=== PATIENT | male | born 1940 | race Caucasian/White ===

== ENCOUNTER 2016-07-04 16:47 | Emergency (ER) | payer OTHER, BC ==
[2016-07-04 17:13] VITALS: BP 153/73; PULSE 55; TEMP 97.6; BMI 23.3
--- NOTE | 2016-07-04 17:36 | PDOC ---
History of Present Illness - General Chief Complaint: Injury Stated Complaint: LT THUMB INJURY Time Seen by Provider: 07/04/16 17:31 History Source: Patient Exam Limitations: No Limitations - History of Present Illness Initial Comments: 07/04/16 17:33 fell last week onto outstretched left hand/ states was swollen/ bruised - patient taking Plavix and aspirin. States just felt was not improving therefore came for evaluation 07/04/16 17:37 Occurred: reports: last week Severity: reports: mild, moderate Pain Location: reports: upper extremity (hand pain ) Method of Injury: Yes: direct blow, fall Modifying Factors: improves with: None Past History - Travel Traveled outside of the country in the last 30 days: No Close contact w/someone who was outside of country & ill: No - Past Medical History Allergies/Adverse Reactions: Allergies Allergy/AdvReac Type Severity Reaction Status Date / Time No Known Allergies Allergy Verified 07/04/16 17:05 Home Medications: Ambulatory Orders Aspirin [ASA -] 81 mg PO DAILY #30 tab.chew 12/02/15 Atorvastatin Ca [Lipitor] 80 mg PO HS #30 tablet 12/02/15 Metoprolol Succinate [Toprol XL -] 25 mg PO DAILY 01/08/16 Lisinopril 10 mg PO BID 01/09/16 Anemia: Yes (IRON DEFICIENCY ANEMIA) Asthma: Yes Cancer: No Cardiac Disorders: Yes ([place] 12/03) CVA: No COPD: Yes (ASBESTOSIS) CHF: No Dementia: No Diabetes: No GI Disorders: Yes (GERD,GASTRODUODENITIS,GASTRITIS) Disorders: No HTN: Yes Hypercholesterolemia: Yes Kidney Stones: No Liver Disease: No Suicide Attempt (Hx): No Seizures: No Thyroid Disease: No Lung CA: No - Surgical History Abdominal Surgery: Yes (BILATERAL INGUINAL HERNIA REPAIR) Appendectomy: Yes Cardiac Surgery: Yes (STENT RIGHT/BALLOON LEFT SIDE) Cholecystectomy: No Lung Surgery: No Neurologic Surgery: No Orthopedic Surgery: No - Reproductive History Testicular Surgery: No - Immunization History Immunization Up to Date: Yes - Psycho/Social/Smoking Cessation Hx Anxiety: No Suicidal Ideation: No Smoking Status: No Smoking History: Never smoked Have you smoked in the past 12 months: No Number of Cigarettes Smoked Daily: 0 'Breaking Loose' booklet given: 10/11/14 Hx Alcohol Use: No (QUIT DRINKING FEB.2016) Drug/Substance Use Hx: No Substance Use Type: Alcohol Hx Substance Use Treatment: No Trauma Specific PMHX - Complaint Specific PMHX Arthritis: No Review of Systems - Review of Systems Able to Perform ROS?: Yes Is the patient limited Welsh proficient: Yes Constitutional: Yes: Symptoms Reported, See HPI, Malaise HEENTM: Yes: Symptoms Reported Respiratory: Yes: Symptoms reported, See HPI, Cough : No: Symptoms Reported Musculoskeletal: Yes: Symptoms Reported, See HPI, Joint Pain, Joint Swelling Integumentary: Yes: Symptoms Reported All Other Systems: Reviewed and Negative *Physical Exam - Vital Signs Last Vital Signs Temp Pulse Resp BP Pulse Ox 97.6 F 55 L 19 153/73 100 07/04/16 17:05 07/04/16 17:05 07/04/16 17:05 07/04/16 17:05 07/04/16 17:05 - Physical Exam General Appearance: Yes: Appropriately Dressed, Apparent Distress HEENT: positive: [place], Normal ENT Inspection, TMs Normal, Pharynx Normal Neck: negative: Tender Respiratory/Chest: positive: Lungs Clear Gastrointestinal/Abdominal: positive: Tender, Soft Extremity: positive: Normal Capillary Refill, Normal Range of Motion (pain with flexion and extension/ against resistance ) Integumentary: positive: Normal Color, Bruising (faint healing bruise to hand / ). negative: Swelling, Ecchymosis Neurologic: positive: commissioning specialist II-XII NML intact, Fully Oriented, Alert, Normal Mood/ Affect, Normal Response, Motor Strength 5/5 Progress Note - Progress Note Progress Note: hand contusion , neg for fractures or dislocation. Hand Leonard wrap, instructed to continue elevation and will see orthopedist for follow-up *DC/Admit/Observation/Transfer Diagnosis at time of Disposition: Contusion Qualifiers: Encounter type: initial encounter Contusion area: hand Laterality: left Qualified Code(s): S60.222A - Contusion of left hand, initial encounter - Discharge Dispostion Disposition: HOME Condition at time of disposition: Stable Admit: No - Referrals Referrals: Bakari Ellsworth MD [Primary Care Provider] - Petr Marks MD [Staff Physician] - - Patient Instructions Printed Discharge Instructions: Contusion Additional Instructions: Rest, ice to area on and off for 15 minutes 4-6 times a day Avoid heavy lifting or exercise until pain and swelling is resolved or until further directed Keep area highly elevated to reduce swelling Use splints/Leonard wrap as directed Followup with orthopedist in one to 2 days if not improving, if significantly improved may wait one week for followup with orthopedist May use Tylenol one or 2 tablets 500 mg every 6 hours as needed for pain
== END 2016-07-04 17:56 | disposition home or self-care (01) ==
LOC: JERFT 16:47 → JER 16:47 → JERFT 17:56
DX: S60.222A Contusion of left hand, initial encounter (principal); W18.39XA Other fall on same level, initial encounter; Y93.89 Activity, other specified; Y92.89 Other specified places as the place of occurrence of the external cause; I25.10 Atherosclerotic heart disease of native coronary artery without angina pectoris; I10 Essential (primary) hypertension; Z95.5 Presence of coronary angioplasty implant and graft; I25.2 Old myocardial infarction; D50.8 Other iron deficiency anemias; J45.909 Unspecified asthma, uncomplicated; E78.00 Pure hypercholesterolemia, unspecified; J61 Pneumoconiosis due to asbestos and other mineral fibers; Z79.01 Long term (current) use of anticoagulants
CPT/HCPCS: 73130-TC-LT; 99281-25

== ENCOUNTER 2016-09-30 08:46 | Emergency (ER) | payer OTHER, BC ==
[2016-09-30 08:54] VITALS: BP 152/90; PULSE 92; TEMP 98.2; BMI 24.0
--- NOTE | 2016-09-30 08:58 | PDOC ---
History of Present Illness - General Chief Complaint: Wound Infection Stated Complaint: WOUND INFECTION Time Seen by Provider: 09/30/16 08:56 History Source: Patient Exam Limitations: No Limitations - History of Present Illness Initial Comments: CHIEF COMPLAINT: 75 y/o afebrile male with PMH HTN, HLD, MA 2 years ago (no longer on blood thinner) c/o infection to right arm x "a few months". HISTORY OF PRESENT ILLNESS: The patient states he's had a wound on his right arm that is itchy for the past few months. Dr. April Hernandez has been treating him with benadryl cream. The patient states the past 2 days the patient states the area has become more itchy and when he scratches the scabs there is some yellow discharge. He denies fever, streaking and all other symptoms. Pt has been using benadryl cream. Vital signs on arrival are within normal limits. REVIEW OF SYSTEMS: GENERAL/CONSTITUTIONAL: No fever/chills. No weakness. No weight change. MUSCULOSKELETAL: +itchy rash/infection to right arm. No neck or back pain. SKIN: No rash or easy bruising. NEUROLOGIC: No headache, vertigo, loss of consciousness, or loss of sensation. PHYSICAL EXAM: VITAL_SIGNS: within normal limits GENERAL_APPEARANCE: alert, cooperative, no obvious discomfort. MENTAL_STATUS: speech clear, oriented X 3, responds appropriately to questions. NEURO: motor intact and sensory intact in injured extremity. EXTREMITIES: Small cluster of papules on lateral, proximal right forearm that have scabbed over with central scab open with dried purulent discharged. No surrounding erythema, edema, warmth or streaking. Full ROM of affected arm. SKIN: warm, dry, good color. Past History - Past Medical History Allergies/Adverse Reactions: Allergies Allergy/AdvReac Type Severity Reaction Status Date / Time No Known Allergies Allergy Verified 09/30/16 08:49 Home Medications: Ambulatory Orders Aspirin [ASA -] 81 mg PO DAILY #30 tab.chew 12/02/15 Atorvastatin Ca [Lipitor] 80 mg PO HS #30 tablet 12/02/15 Metoprolol Succinate [Toprol XL -] 25 mg PO DAILY 01/08/16 Lisinopril 10 mg PO BID 01/09/16 Clopidogrel Bisulfate [Clopidogrel] 75 mg PO DAILY 09/22/16 Nebivolol HCl [Bystolic] 5 mg PO DAILY 09/22/16 Pantoprazole Sodium 40 mg PO DAILY 09/22/16 Albuterol Sulfate [Proair Respiclick] 90 mcg IH DAILY 09/23/16 Budesonide/Formeterol Fumarate [SYMBICORT 160/4.5mcg -] 1 puff PO PRN 09/23/16 Hydroxyzine HCl [Atarax -] 25 mg PO TID 09/23/16 Ipratropium/Albuterol Sulfate [Iprat-Albut 0.5-3(2.5) mg/3 ml] 1 puff PO PRN 05/07 Thiamine HCl [Vitamin B1] 1 tab PO PRN 09/23/16 Tiotropium Alna [Spiriva] 1 inh PO DAILY 09/23/16 Mupirocin Ointment [Bactroban 2% Ointment -] 1 applic TP TID #1 tube 09/30/16 Anemia: Yes (IRON DEFICIENCY ANEMIA) Asthma: Yes Cancer: Yes (RECTAL CANCER) Cardiac Disorders: Yes ([place] 12/03) CVA: No COPD: Yes (ASBESTOSIS) CHF: No Dementia: No Diabetes: No GI Disorders: Yes (GERD,GASTRODUODENITIS,GASTRITIS) Disorders: No HTN: Yes Hypercholesterolemia: Yes Kidney Stones: No Liver Disease: No Suicide Attempt (Hx): No Seizures: No Thyroid Disease: No Lung CA: No - Surgical History Abdominal Surgery: Yes (BILATERAL INGUINAL HERNIA REPAIR) Appendectomy: Yes Cardiac Surgery: Yes (STENT RIGHT/BALLOON LEFT SIDE) Cholecystectomy: No Lung Surgery: No Neurologic Surgery: No Orthopedic Surgery: No - Reproductive History Testicular Surgery: No - Immunization History Immunization Up to Date: Yes - Psycho/Social/Smoking Cessation Hx Anxiety: No Suicidal Ideation: No Smoking Status: No Smoking History: Former smoker Have you smoked in the past 12 months: No Number of Cigarettes Smoked Daily: 0 Information on smoking cessation initiated: No 'Breaking Loose' booklet given: 10/11/14 Hx Alcohol Use: Yes Drug/Substance Use Hx: No Substance Use Type: Alcohol Hx Substance Use Treatment: No *Physical Exam - Vital Signs Last Vital Signs Temp Pulse Resp BP Pulse Ox 98.2 F 92 H 18 152/90 97 09/30/16 08:49 09/30/16 08:49 09/30/16 08:49 09/30/16 08:49 09/30/16 08:49 Medical Decision Making - Medical Decision Making A/P: 75 y/o male with small patch of infected papules on right forearm. Most likely infected from scratching. Will send bactroban ointment. Suggested he use for 1 week and if no improvement f/u with Dr. Hernandez and Dr. Ellsworth. Instructed him to return to the ER immediately with any worsening or concerning symptoms, such as fever. The patient verbalizes understanding of all instructions, has no further questions and is awaiting discharge. *DC/Admit/Observation/Transfer Diagnosis at time of Disposition: Arm wound Qualifiers: Encounter type: initial encounter Laterality: right Qualified Code(s): S41.101A - Unspecified open wound of right upper arm, initial encounter - Discharge Dispostion Disposition: HOME Condition at time of disposition: Good - Prescriptions Prescriptions: Mupirocin Ointment [Bactroban 2% Ointment -] 1 applic TP TID #1 tube - Referrals Referrals: Bakari Ellsworth MD [Primary Care Provider] - - Patient Instructions Printed Discharge Instructions: DI for Wound Infection Additional Instructions: Discharge Instructions: -A prescription for an antibiotic cream has been sent to your pharmacy; please take as prescribed -Follow up with Dr. Hernandez and Dr. Ellsworth if no improvement in 1 week -Return to the ER in 1 week with any worsening or concerning symptoms, including fever
== END 2016-09-30 09:24 | disposition home or self-care (01) ==
LOC: JERFT 08:46
DX: S41.101A Unspecified open wound of right upper arm, initial encounter (principal); Z85.048 Personal history of other malignant neoplasm of rectum, rectosigmoid junction, and anus; J61 Pneumoconiosis due to asbestos and other mineral fibers; K21.9 Gastro-esophageal reflux disease without esophagitis; I10 Essential (primary) hypertension; E78.00 Pure hypercholesterolemia, unspecified; Z87.891 Personal history of nicotine dependence
CPT/HCPCS: 87070; 87186; 87205; 99281-25

== ENCOUNTER 2017-03-04 07:03 | Emergency (ER) | payer OTHER, BC ==
[2017-03-04 07:14] VITALS: BP 154/100; PULSE 94; TEMP 98.3; BMI 24.9
--- NOTE | 2017-03-04 09:34 | PDOC ---
Suture Removal/Wound Check HPI - History of Present Illness Chief Complaint: Revisit,Wound Recheck Stated Complaint: POST SURGERY Time Seen by Provider: 03/04/17 08:56 History Source: Yes: Patient Exam Limitations: Yes: No Limitations Treated at: Other ED - Previous ED Treatment Type of procedure performed on last visit: Yes: Other Past History - Past Medical History Allergies/Adverse Reactions: Allergies Allergy/AdvReac Type Severity Reaction Status Date / Time No Known Allergies Allergy Verified 03/04/17 07:10 Home Medications: Ambulatory Orders Aspirin [ASA -] 81 mg PO DAILY #30 tab.chew 12/02/15 Atorvastatin Ca [Lipitor] 80 mg PO HS #30 tablet 12/02/15 Metoprolol Succinate [Toprol XL -] 25 mg PO DAILY 01/08/16 Lisinopril 10 mg PO BID 01/09/16 Clopidogrel Bisulfate [Clopidogrel] 75 mg PO DAILY 09/22/16 Pantoprazole Sodium 40 mg PO DAILY 09/22/16 Albuterol Sulfate [Proair Respiclick] 90 mcg IH DAILY 09/23/16 Ascorbic Acid [Vitamin C -] 500 mg PO ASDIR 03/04/17 Iron Ps Complex/B12/Folic Acid [Poly-Iron 150 Forte Capsule] 1 each PO ASDIR 02/07 Anemia: Yes (IRON DEFICIENCY ANEMIA) Asthma: Yes Cancer: Yes (RECTAL CANCER) Cardiac Disorders: Yes ([place] 12/03) CVA: No COPD: Yes (ASBESTOSIS) CHF: No Dementia: No Diabetes: No GI Disorders: Yes (GERD,GASTRODUODENITIS,GASTRITIS) Disorders: No HTN: Yes Hypercholesterolemia: Yes Kidney Stones: No Liver Disease: No Seizures: No Thyroid Disease: No Lung CA: No - Surgical History Abdominal Surgery: Yes (BILATERAL INGUINAL HERNIA REPAIR) Appendectomy: Yes Cardiac Surgery: Yes (STENT RIGHT/BALLOON LEFT SIDE) Cholecystectomy: No Lung Surgery: No Neurologic Surgery: No Orthopedic Surgery: No - Reproductive History Testicular Surgery: No - Immunization History Immunization Up to Date: Yes - Suicide/Smoking/Psychosocial Hx Smoking Status: No Smoking History: Former smoker Have you smoked in the past 12 months: No Number of Cigarettes Smoked Daily: 0 Information on smoking cessation initiated: No 'Breaking Loose' booklet given: 10/11/14 Hx Alcohol Use: Yes Drug/Substance Use Hx: No Substance Use Type: Alcohol Hx Substance Use Treatment: No *DC/Admit/Observation/Transfer Diagnosis at time of Disposition: Visit for wound check - Discharge Dispostion Disposition: HOME Condition at time of disposition: Stable Admit: No - Referrals Referrals: Bakari Ellsworth MD [Primary Care Provider] - - Patient Instructions Printed Discharge Instructions: How to Care for a Surgical Wound Additional Instructions: change dressigs daily as directed- add more bacitrain and guaze until followed up by Plastic Surgeon for wound check and suture removal. May use Tylenol for pain Return to Surgeon for fevers, problems - Post Discharge Activity
--- NOTE | 2017-03-04 09:38 | PDOC ---
Suture Removal/Wound Check HPI - History of Present Illness Chief Complaint: Revisit,Wound Recheck Stated Complaint: POST SURGERY Time Seen by Provider: 03/04/17 08:56 History Source: Yes: Patient Exam Limitations: Yes: No Limitations Treated at: Other ED - Previous ED Treatment Type of procedure performed on last visit: Yes: Other (Skin biopsy and excision to left nose and left ear graft site by plastic surgeon Dr. Ashby area patient came for dressing change as was concerned about persistent bleeding. Patient states blood profusely yesterday during procedure although he had stopped his Plavix approximately one week before the biopsy. Was concerned that he would not be able to stop the bleeding so came to ER for dressing change. Denies fever , pain, any bleeding throughout the night.) Tetanus Immunization: Yes: Up to Date Past History - Travel Traveled outside of the country in the last 30 days: No Close contact w/someone who was outside of country & ill: No - Past Medical History Allergies/Adverse Reactions: Allergies Allergy/AdvReac Type Severity Reaction Status Date / Time No Known Allergies Allergy Verified 03/04/17 07:10 Home Medications: Ambulatory Orders Aspirin [ASA -] 81 mg PO DAILY #30 tab.chew 12/02/15 Atorvastatin Ca [Lipitor] 80 mg PO HS #30 tablet 12/02/15 Metoprolol Succinate [Toprol XL -] 25 mg PO DAILY 01/08/16 Lisinopril 10 mg PO BID 01/09/16 Clopidogrel Bisulfate [Clopidogrel] 75 mg PO DAILY 09/22/16 Pantoprazole Sodium 40 mg PO DAILY 09/22/16 Albuterol Sulfate [Proair Respiclick] 90 mcg IH DAILY 09/23/16 Ascorbic Acid [Vitamin C -] 500 mg PO ASDIR 03/04/17 Iron Ps Complex/B12/Folic Acid [Poly-Iron 150 Forte Capsule] 1 each PO ASDIR 02/07 Anemia: Yes (IRON DEFICIENCY ANEMIA) Asthma: Yes Cancer: Yes (RECTAL CANCER) Cardiac Disorders: Yes ([place] 12/03) CVA: No COPD: Yes (ASBESTOSIS) CHF: No Dementia: No Diabetes: No GI Disorders: Yes (GERD,GASTRODUODENITIS,GASTRITIS) Disorders: No HTN: Yes Hypercholesterolemia: Yes Kidney Stones: No Liver Disease: No Seizures: No Thyroid Disease: No Lung CA: No - Surgical History Abdominal Surgery: Yes (BILATERAL INGUINAL HERNIA REPAIR) Appendectomy: Yes Cardiac Surgery: Yes (STENT RIGHT/BALLOON LEFT SIDE) Cholecystectomy: No Lung Surgery: No Neurologic Surgery: No Orthopedic Surgery: No - Reproductive History Testicular Surgery: No - Immunization History Immunization Up to Date: Yes - Suicide/Smoking/Psychosocial Hx Smoking Status: No Smoking History: Former smoker Have you smoked in the past 12 months: No Number of Cigarettes Smoked Daily: 0 Information on smoking cessation initiated: No 'Breaking Loose' booklet given: 10/11/14 Hx Alcohol Use: Yes Drug/Substance Use Hx: No Substance Use Type: Alcohol Hx Substance Use Treatment: No Suture Removal/Wound Check PE - Physical Exam Laceration/Wound Check Symptoms: reports: Pain (Some mild tenderness at suture line, denies redness, swelling, fevers, or excessive bleeding or drainage) Current Severity Level: Mild Maximum Severity Level: None Pain Localization: None *Review of Systems - Review of Systems Able to Perform ROS?: Yes Constitutional: Yes: Symptoms Reported, See HPI, Malaise Respiratory: No: Symptoms reported Musculoskeletal: No: Symptoms Reported Integumentary: Yes: Symptoms Reported Neurological: No: Symptoms reported All Other Systems: Reviewed and Negative Medical Decision Making - Medical Decision Making 03/04/17 09:45 Dressings removed, packing removed from area, wounds appear to be well approximated without erythema however has some faint swelling. No bleeding, no purulent drainage. Cleaned and redressed bacitracin and with Telfa dressing and patient discharged with follow-up *DC/Admit/Observation/Transfer Diagnosis at time of Disposition: Visit for wound check - Discharge Dispostion Disposition: HOME Condition at time of disposition: Stable Admit: No - Referrals Referrals: Bakari Ellsworth MD [Primary Care Provider] - - Patient Instructions Printed Discharge Instructions: How to Care for a Surgical Wound Additional Instructions: change dressigs daily as directed- add more bacitrain and guaze until followed up by Plastic Surgeon for wound check and suture removal. May use Tylenol for pain Return to Surgeon for fevers, problems - Post Discharge Activity
== END 2017-03-04 10:29 | disposition home or self-care (01) ==
LOC: JER 07:03
DX: Z48.01 Encounter for change or removal of surgical wound dressing (principal); Z98.890 Other specified postprocedural states
CPT/HCPCS: 99281-25

== ENCOUNTER 2017-03-05 07:46 | Emergency (ER) | payer OTHER, BC ==
[2017-03-05 07:56] VITALS: BP 144/105; PULSE 104; BMI 24.9
--- NOTE | 2017-03-05 08:42 | PDOC ---
History of Present Illness - General Chief Complaint: Revisit,Wound Recheck Stated Complaint: RE VISIT Time Seen by Provider: 03/05/17 08:15 History Source: Patient Exam Limitations: No Limitations - History of Present Illness Initial Comments: 03/05/17 09:19 Patient is a 76-year-old male, status post excision of skin cancer to left side of nose with reconstruction flap from cheek. Patient here because of bleeding to left nares. Was seen here yesterday dressing was changed. Patient still with oozing of blood to the left nares. Here for dressing change. Past History - Past Medical History Allergies/Adverse Reactions: Allergies Allergy/AdvReac Type Severity Reaction Status Date / Time No Known Allergies Allergy Verified 03/05/17 07:50 Home Medications: Ambulatory Orders Aspirin [ASA -] 81 mg PO DAILY #30 tab.chew 12/02/15 Atorvastatin Ca [Lipitor] 80 mg PO HS #30 tablet 12/02/15 Metoprolol Succinate [Toprol XL -] 25 mg PO DAILY 01/08/16 Lisinopril 10 mg PO BID 01/09/16 Clopidogrel Bisulfate [Clopidogrel] 75 mg PO DAILY 09/22/16 Pantoprazole Sodium 40 mg PO DAILY 09/22/16 Albuterol Sulfate [Proair Respiclick] 90 mcg IH DAILY 09/23/16 Ascorbic Acid [Vitamin C -] 500 mg PO ASDIR 03/04/17 Iron Ps Complex/B12/Folic Acid [Poly-Iron 150 Forte Capsule] 1 each PO ASDIR 02/07 Anemia: Yes (IRON DEFICIENCY ANEMIA) Asthma: Yes Cancer: Yes (RECTAL CANCER, FACIAL CA) Cardiac Disorders: Yes ([place] 12/03) CVA: No COPD: 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) CHF: No Dementia: No Diabetes: No GI Disorders: Yes (GERD,GASTRODUODENITIS,GASTRITIS) Disorders: No HTN: Yes Hypercholesterolemia: Yes Kidney Stones: No Liver Disease: No Seizures: No Thyroid Disease: No Lung CA: No - Surgical History Abdominal Surgery: Yes (BILATERAL INGUINAL HERNIA REPAIR) Appendectomy: Yes Cardiac Surgery: Yes (STENT RIGHT/BALLOON LEFT SIDE) Cholecystectomy: No Lung Surgery: No Neurologic Surgery: No Orthopedic Surgery: No - Reproductive History Testicular Surgery: No - Immunization History Immunization Up to Date: Yes - Suicide/Smoking/Psychosocial Hx Smoking Status: No Smoking History: Never smoked Have you smoked in the past 12 months: No Number of Cigarettes Smoked Daily: 0 'Breaking Loose' booklet given: 10/11/14 Hx Alcohol Use: No Drug/Substance Use Hx: No Substance Use Type: Alcohol Hx Substance Use Treatment: No Review of Systems - Review of Systems Constitutional: No: Symptoms Reported Integumentary: Yes: Other (no edema, induration or pustulent discharge. ). No: Symptoms Reported, Bruising, Erythema Hematologic/Lymphatic: No: Symptoms Reported All Other Systems: Reviewed and Negative *Physical Exam - Vital Signs Last Vital Signs Temp Pulse Resp BP Pulse Ox 104 H 20 144/105 97 03/05/17 07:47 03/05/17 07:47 03/05/17 07:47 03/05/17 07:47 - Physical Exam General Appearance: Yes: Appropriately Dressed. No: Apparent Distress Neck: negative: Tender lateral, Tender midline Respiratory/Chest: positive: Lungs Clear, Normal Breath Sounds Integumentary: positive: Swelling, Other. negative: Erythema, Ecchymosis, Bruising Neurologic: positive: Alert, Normal Mood/Affect Medical Decision Making - Medical Decision Making 03/05/17 08:38 A/P: Patient concerned of increased bleeding to surgical wound on left side of nose. I called patient's plastic surgeon I have explained to physician that patient was seen yesterday and dressing was changed, has stated that area is known to bleed 3 days postop. Dressing is to remain intact, the dressing will usually get saturated with blood and harden acting as a pressure dressing. He is to leave dressing intact and follow-up with doctor on Tuesday. If any excessive bleeding, call Avis 03/05/17 09:22 *DC/Admit/Observation/Transfer Diagnosis at time of Disposition: Visit for wound check - Discharge Dispostion Disposition: HOME Condition at time of disposition: Good Admit: No - Referrals Referrals: Bakari Ellsworth MD [Primary Care Provider] - - Patient Instructions Printed Discharge Instructions: How to Care for a Surgical Wound Additional Instructions: Please leave dressing intact. If blood is on dressing, leave it alone, do not remove. Your surgeon has stated that area can bleed for 3 days postop dressing will get hard and act as a pressure dressing. Follow-up with surgeon this week, call Tuesday for appointment - Post Discharge Activity
== END 2017-03-05 08:42 | disposition home or self-care (01) ==
LOC: JER 07:46 → JERFT 07:46
DX: Z70.9 Sex counseling, unspecified (principal)
CPT/HCPCS: 99281-25

== ENCOUNTER 2017-04-27 06:01 | Emergency (ER) | payer OTHER, BC ==
[2017-04-27 06:25] VITALS: BMI 23.6
--- NOTE | 2017-04-27 07:26 | PDOC ---
History of Present Illness - General Chief Complaint: Cold Symptoms Stated Complaint: DIFFICULTY BREATHING Time Seen by Provider: 04/27/17 07:08 History Source: Patient Exam Limitations: No Limitations - History of Present Illness Initial Comments: 04/27/17 07:26 The patient is a 76 -year-old man with a significant pats medical history of hypertension, hypercholesterolemia, [place] (2014 s/p cardiac catheterization), asbestosis, GERD, anemia and former alcohol abuse who presents to the emergency department via walk-in for increasing shortness of breath, fatigue, and generalized muscle pain (tiffanie chest and back, reproducible on palpation) for the past [address] Villegas 2 days ago who tested him positive for Tamiflu and told him to come to the ER after 2 days if he didn't feel better, which is why he's here today. Denies headache, nausea, vomiting, abdominal pain diarrhea. 04/27/17 07:51 Past History - Past Medical History Allergies/Adverse Reactions: Allergies Allergy/AdvReac Type Severity Reaction Status Date / Time No Known Allergies Allergy Verified 04/27/17 06:21 Home Medications: Ambulatory Orders Aspirin [ASA -] 81 mg PO DAILY #30 tab.chew 12/02/15 Atorvastatin Ca [Lipitor] 80 mg PO HS #30 tablet 12/02/15 Metoprolol Succinate [Toprol XL -] 25 mg PO DAILY 01/08/16 Lisinopril 10 mg PO BID 01/09/16 Clopidogrel Bisulfate [Clopidogrel] 75 mg PO DAILY 09/22/16 Pantoprazole Sodium 40 mg PO DAILY 09/22/16 Albuterol Sulfate [Proair Respiclick] 90 mcg IH DAILY 09/23/16 Ascorbic Acid [Vitamin C -] 500 mg PO ASDIR 03/04/17 Iron Ps Complex/B12/Folic Acid [Poly-Iron 150 Forte Capsule] 1 each PO ASDIR 02/07 Methylprednisolone [Medrol Dose Trev] 4 mg PO ASDIR #21 tablet 04/27/17 Anemia: Yes (IRON DEFICIENCY ANEMIA) Asthma: Yes Cancer: Yes (RECTAL CANCER, FACIAL CA) Cardiac Disorders: Yes ([place] 12/03 09/04) CVA: No COPD: 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) CHF: No Dementia: No Diabetes: No GI Disorders: Yes (GERD,GASTRODUODENITIS,GASTRITIS) Disorders: No HTN: Yes Hypercholesterolemia: Yes Kidney Stones: No Liver Disease: No Seizures: No Thyroid Disease: No Lung CA: No - Surgical History Abdominal Surgery: Yes (BILATERAL INGUINAL HERNIA REPAIR) Appendectomy: Yes Cardiac Surgery: Yes (STENT RIGHT/BALLOON LEFT SIDE) Cholecystectomy: No Lung Surgery: No Neurologic Surgery: No Orthopedic Surgery: No - Reproductive History Testicular Surgery: No - Immunization History Immunization Up to Date: Yes - Suicide/Smoking/Psychosocial Hx Smoking Status: No Smoking History: Never smoked Have you smoked in the past 12 months: No Number of Cigarettes Smoked Daily: 0 Information on smoking cessation initiated: No 'Breaking Loose' booklet given: 10/11/14 Hx Alcohol Use: No Drug/Substance Use Hx: No Substance Use Type: None, Alcohol Hx Substance Use Treatment: No Respiratory Specific PMHX - Complaint Specific PMHX Pulmonary Embolus: No TB (Tuberculosis): No Review of Systems - Review of Systems Able to Perform ROS?: Yes Is the patient limited Persian proficient: No Constitutional: Yes: See HPI HEENTM: No: Symptoms Reported Respiratory: Yes: See HPI Cardiac (ROS): No: Symptoms Reported ABD/GI: No: Symptoms Reported : No: Symptoms Reported Musculoskeletal: Yes: See HPI Integumentary: No: Symptoms Reported Neurological: No: Symptoms reported All Other Systems: Reviewed and Negative *Physical Exam - Vital Signs Last Vital Signs Temp Pulse Resp BP Pulse Ox 97.5 F L 62 18 121/72 96 04/27/17 06:21 04/27/17 06:21 04/27/17 06:21 04/27/17 06:21 04/27/17 06:21 ED Treatment Course - LABORATORY CBC & Chemistry Diagram: 04/27/17 08:10 04/27/17 08:10 Medical Decision Making - Medical Decision Making 04/27/17 09:37 All labs wnl, slight hyponnatremia, given patient [id number] of NS and 2 treatment of duoneb spoke to Dr. Mcgarry, Asked to d/c the patient on medrol dose pack and d/c the patient with follow up with Dr. Ellsworth tomorrow. 04/27/17 10:25 Impression: Large hiatal hernia. Pulmonary and parenchymal calcifications. No acute pathology. Ovoid density right mid lung woo periphery. Spoke to Dr. Mcgarry about avoid mass, will follow up with patient tomorrow. Will d/c on medrol dosepack *DC/Admit/Observation/Transfer Diagnosis at time of Disposition: Influenza due to seasonal influenza virus - Discharge Dispostion Disposition: HOME Condition at time of disposition: Improved Admit: No - Prescriptions Prescriptions: Methylprednisolone [Medrol Dose Trev] 4 mg PO ASDIR #21 tablet - Referrals Referrals: Bakari Ellsworth MD [Primary Care Provider] - - Patient Instructions Additional Instructions: Follow up with Dr. Ellsworth tomorrow. Come back to the ER for any new, worsening or concerning symptom. - Post Discharge Activity
[2017-04-27] MEDS ORDERED: ALBUTEROL SO4 2.5/IPRATROPIUM 0.5 INH SOL 3 ML VIAL.NEB. NEB ONE ×4 (07:33→09:21)
--- NOTE | 2017-04-27 07:35 | PDOC ---
Attending Attestation - HPI HPI: 04/27/17 07:43 The patient is a 76 year old male, with a significant past medical history hypertension, hyperlipidemia, GERD, asbestosis, [place](2014, s/p cardiac catheterization), rectal CA, facial CA, and anemia, who presents to the ED with fatigue, body aches, cough, generalized chest pain, shortness of breath for approximately 4 days. Patient reports visiting his PCP Dr. Joanne Ellsworth 2 days ago with similar symptoms and was started on Tamiflu. Patient reports his PCP recommended he come to the ED if his symptoms did not improve. He denies any fever, chills, headache, dizziness, diaphoresis, palpitations, nausea, vomiting , recent travel or sick contacts. - Medical Decision Making 04/27/17 07:43 Documentation prepared by Magda Desai, acting as medical office technologist for Doug Bowden MD. <Magda Desai - Last Filed: 04/27/17 09:10> - Resident Resident Name: Asif Pritchard - ED Attending Attestation I have performed the following: I have examined & evaluated the patient, The case was reviewed & discussed with the resident, I agree w/resident's findings & plan, Exceptions are as noted - Medical Decision Making 04/27/17 09:35 Patient is a 76-year-old male with history of CAD, hypertension who presents to the ER with generalized weakness, malaise, musculoskeletal chest, upper back and upper abdominal pain that is exacerbated by cough. Patient denies fever/ chills/nausea/vomiting. Patient's symptoms are consistent with ongoing flulike illness. Chest x-ray reveals no evidence of infiltrate or effusion, large hiatal hernias noted and questionable soft tissue avoid mass is noted in the right mid field which can be followed up as an outpatient. CBC/CMP within normal limit. Patient improved after administration of Combivent and 500 mL of normal saline. Will continue to reassess. Will discuss with PMD. <Doug Bowden - Last Filed: 04/27/17 16:27> Critical Care Time/MDM Note - Medical Decision Making Note: 04/27/17 09:11 First call placed to Dr. Ellsworth at 09:11. Awaiting call back. <Magda Desai - Last Filed: 04/27/17 09:10>
[2017-04-27] MEDS ORDERED: ACETAMINOPHEN 325 MG TABLET (FP) PO ONE (07:36)
[2017-04-27] MEDS ORDERED: ACETAMINOPHEN 325 MG TABLET (FP) ONE (07:38)
[2017-04-27] MEDS ORDERED: SODIUM CHLORIDE 500 ML IV STA ×2 (07:43→09:07)
[2017-04-27 08:29] LABS: BASO % 1.2 % (0-2.0); EOS % 12.4 % (0-4.5); HEMOGLOBIN 14.6 GM/dL (11.7-16.9); LYMPH % 18.5 % (8-40); MCH 35.4 pg (25.7-33.7); MCHC 34.8 g/dl (32.0-35.9); MEAN CELL VOLUME 101.5 fl (80-96); MEAN PLT VOLUME 9.6 fl (7.5-11.1); MONO % 10.5 % (3.8-10.2); NEUT % 57.4 % (42.8-82.8); PLATELET COUNT 208 K/MM3 (134-434); RBC 4.13 M/mm3 (4.00-5.60); RDW 14.9 % (11.9-15.9); WHITE BLOOD COUNT 7.4 K/mm3 (4.0-10.0)
[2017-04-27 08:40] LABS: ANION GAP 8 (8-16); BILIRUBIN,TOTAL 0.7 mg/dL (0.2-1.0); BLOOD UREA NITROGEN 11 mg/dL (7-18); CALCIUM 8.6 mg/dL (8.5-10.1); CHLORIDE 95 mmol/L (98-107); CO2 28 mmol/L (21-32); GLUCOSE,RANDOM 84 mg/dL (74-106); SGOT/AST 15 U/L (15-37); SGPT/ALT 14 U/L (12-78); SODIUM 131 mmol/L (136-145); TOT PROT 7.7 g/dl (6.4-8.2)
[2017-04-27 08:41] LABS: ALK PHOS 62 U/L (45-117)
[2017-04-27 10:46] VITALS: BP 147/76; PULSE 76; TEMP 97.6
--- NOTE | 2017-04-27 10:51 | EKG ---
Test Reason : Blood Pressure : / mmHG Vent. Rate : 056 BPM Atrial Rate : 056 BPM P-R Int : 142 ms QRS Dur : 084 ms QT Int : 450 ms P-R-T Axes : 044 041 057 degrees QTc Int : 434 ms SINUS BRADYCARDIA WITH OCCASIONAL PREMATURE VENTRICULAR COMPLEXES OTHERWISE NORMAL ECG WHEN COMPARED WITH ECG OF 29-DEC-2015 11:54, PREMATURE VENTRICULAR COMPLEXES ARE NOW PRESENT PREMATURE ATRIAL COMPLEXES ARE NO LONGER PRESENT Confirmed by LUCAS CASH, LILY ([id number]) on 04/27/2017 10:50:38 AM Referred By: Confirmed By:LILY ZAVALA MD
== END 2017-04-27 10:46 | disposition home or self-care (01) ==
LOC: JER 06:01
PROC: 3E0F7GC Introduction of Other Therapeutic Substance into Respiratory Tract, Via Natural or Artificial Opening (ICD-10-PCS; principal; 2017-04-27)
PROC: 3E0337Z Introduction of Electrolytic and Water Balance Substance into Peripheral Vein, Percutaneous Approach (ICD-10-PCS; 2017-04-27)
DX: J11.1 Influenza due to unidentified influenza virus with other respiratory manifestations (principal); I10 Essential (primary) hypertension; E78.00 Pure hypercholesterolemia, unspecified; I25.2 Old myocardial infarction; K21.9 Gastro-esophageal reflux disease without esophagitis
CPT/HCPCS: 36415; 71046-TC-FY; 80053; 85025; 93005; 93010; 99282-25

== ENCOUNTER 2017-07-15 14:29 | Emergency (ER) | payer OTHER, BC ==
[2017-07-15 14:47] VITALS: BP 122/80; PULSE 89; TEMP 98.6; BMI 24.0
--- NOTE | 2017-07-15 14:54 | PDOC ---
Rapid Medical Evaluation Chief Complaint: Wound Time Seen by Provider: 07/15/17 14:45 Medical Evaluation: Allergies Allergy/AdvReac Type Severity Reaction Status Date / Time No Known Allergies Allergy Verified 07/15/17 14:43 Vital Signs Temp Pulse Resp BP Pulse Ox 98.6 F 89 18 122/80 99 07/15/17 14:44 07/15/17 14:44 07/15/17 14:44 07/15/17 14:44 07/15/17 14:44 07/15/17 14:49 I have performed a brief in-person evaluation of this patient. The patient presents with a chief complaint of: possible infection to L forearm. Fell 3 days ago and sustained abrasion to L forearm, now with redness and pain to site, no f/c. H/o CAD, CA Pertinent physical exam findings:stable and well jv w/ 4x3 cm abrasion to L FA w/ limited erythema and ttp I have ordered the following:xray The patient will proceed to the ED for further evaluation 07/15/17 14:54 Discharge Disposition - Diagnosis Abrasion - Referrals - Patient Instructions - Post Discharge Activity
--- NOTE | 2017-07-15 15:34 | PDOC ---
History of Present Illness - General Chief Complaint: Wound Stated Complaint: INFECTION HAND Time Seen by Provider: 07/15/17 14:45 History Source: Patient Exam Limitations: No Limitations - History of Present Illness Initial Comments: CHIEF COMPLAINT: 76 y/o afebrile male with PMH HTN, HLD, CAD with [place] 2 years ago on Plavix c/o left arm wound x 3 days. HISTORY OF PRESENT ILLNESS: The patient sustained a left arm abrasion 3 days ago. He states it still hurts. He's been cleaning it with peroxide but is worried it's infected. He denies fever, streaking. Vital signs on arrival are within normal limits. REVIEW OF SYSTEMS: GENERAL/CONSTITUTIONAL: No fever/chills. No weakness. No weight change. MUSCULOSKELETAL: No joint or muscle swelling or pain. No neck or back pain. SKIN: +painful abrasion to left arm NEUROLOGIC: No headache, vertigo, loss of consciousness, or loss of sensation. PHYSICAL EXAM: VITAL_SIGNS: within normal limits GENERAL_APPEARANCE: alert, cooperative, mild obvious discomfort. MENTAL_STATUS: speech clear, oriented X 3, responds appropriately to questions. NEURO: motor intact and sensory intact in injured extremity. EXTREMITIES: 4cm x 3cm abrasion to left forearm with minimal bleeding and erythematous base. No obvious deformities, streaking or warmth. Full flexion, extension, pronation and supination of left forearm SKIN: warm, dry, good color. Past History - Past Medical History Allergies/Adverse Reactions: Allergies Allergy/AdvReac Type Severity Reaction Status Date / Time No Known Allergies Allergy Verified 07/15/17 14:43 Home Medications: Ambulatory Orders Aspirin [ASA -] 81 mg PO DAILY #30 tab.chew 12/02/15 Atorvastatin Ca [Lipitor] 80 mg PO HS #30 tablet 12/02/15 Metoprolol Succinate [Toprol XL -] 25 mg PO DAILY 01/08/16 Lisinopril 10 mg PO BID 01/09/16 Clopidogrel Bisulfate [Clopidogrel] 75 mg PO DAILY 09/22/16 Pantoprazole Sodium 40 mg PO DAILY 09/22/16 Albuterol Sulfate [Proair Respiclick] 90 mcg IH DAILY 09/23/16 Ascorbic Acid [Vitamin C -] 500 mg PO ASDIR 03/04/17 Iron Ps Complex/B12/Folic Acid [Poly-Iron 150 Forte Capsule] 1 each PO ASDIR 02/07 Mupirocin Ointment [Bactroban] 1 applic TP TID #1 tube 07/15/17 Anemia: Yes (IRON DEFICIENCY ANEMIA) Asthma: Yes Cancer: Yes (RECTAL CANCER, FACIAL CA) Cardiac Disorders: Yes ([place] 12/03 09/04) CVA: No COPD: 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) CHF: No Dementia: No Diabetes: No GI Disorders: Yes (GERD,GASTRODUODENITIS,GASTRITIS) Disorders: No HTN: Yes Hypercholesterolemia: Yes Kidney Stones: No Liver Disease: No Seizures: No Thyroid Disease: No Lung CA: No - Surgical History Abdominal Surgery: Yes (BILATERAL INGUINAL HERNIA REPAIR) Appendectomy: Yes Cardiac Surgery: Yes (STENT RIGHT/BALLOON LEFT SIDE) Cholecystectomy: No Lung Surgery: No Neurologic Surgery: No Orthopedic Surgery: No - Reproductive History Testicular Surgery: No - Immunization History Immunization Up to Date: Yes - Suicide/Smoking/Psychosocial Hx Smoking Status: No Smoking History: Former smoker Have you smoked in the past 12 months: No Number of Cigarettes Smoked Daily: 0 Information on smoking cessation initiated: No 'Breaking Loose' booklet given: 10/11/14 Hx Alcohol Use: No Drug/Substance Use Hx: No Substance Use Type: None, Alcohol Hx Substance Use Treatment: No *Physical Exam - Vital Signs Last Vital Signs Temp Pulse Resp BP Pulse Ox 98.6 F 89 18 122/80 99 07/15/17 14:44 07/15/17 14:44 07/15/17 14:44 07/15/17 14:44 07/15/17 14:44 Medical Decision Making - Medical Decision Making A/P: 76 y.o male with left forearm abrasion. Looks clean. Plan is as follows: 1. Left forearm/elbow xray Left forearm/elbow xray IMPRESSION: (wet read) No fracture The patient's abrasion was cleaned and covered. Sent rx for bactroban. Suggested he keep area covered, follow up with his doctor next week and return to the ER with any worsening or concerning symptoms The patient verbalizes understanding of all instructions, has no further questions and is awaiting discharge. *DC/Admit/Observation/Transfer Diagnosis at time of Disposition: Abrasion - Discharge Dispostion Disposition: HOME Condition at time of disposition: Good - Prescriptions Prescriptions: Mupirocin Ointment [Bactroban] 1 applic TP TID #1 tube - Referrals Referrals: Bakari Ellswroth MD [Primary Care Provider] - - Patient Instructions Printed Discharge Instructions: DI for Abrasion Additional Instructions: Discharge Instructions: -Your xray was normal -A prescription for antibiotic cream has been sent to your pharmacy; please use it 3 times per day -Keep the wound covered -Follow up with your doctor next week -Return to the ER with any worsening or concerning symptoms - Post Discharge Activity
== END 2017-07-15 16:04 | disposition home or self-care (01) ==
LOC: JERFT 14:29
DX: S50.812A Abrasion of left forearm, initial encounter (principal); W18.39XA Other fall on same level, initial encounter; Y93.89 Activity, other specified; Y92.89 Other specified places as the place of occurrence of the external cause; Y99.8 Other external cause status; I25.2 Old myocardial infarction; I25.10 Atherosclerotic heart disease of native coronary artery without angina pectoris; I10 Essential (primary) hypertension; Z95.5 Presence of coronary angioplasty implant and graft; E78.00 Pure hypercholesterolemia, unspecified; Z87.19 Personal history of other diseases of the digestive system; Z79.82 Long term (current) use of aspirin; Z79.01 Long term (current) use of anticoagulants; Z85.048 Personal history of other malignant neoplasm of rectum, rectosigmoid junction, and anus; Z85.828 Personal history of other malignant neoplasm of skin; Z87.891 Personal history of nicotine dependence
CPT/HCPCS: 73070-TC-LT-FY; 73090-TC-LT-FY; 99281-25

== ENCOUNTER 2017-09-08 14:07 | Emergency (ER) | payer OTHER, BC ==
[2017-09-08 14:26] VITALS: BMI 24.0
--- NOTE | 2017-09-08 15:11 | PDOC ---
History of Present Illness - General Chief Complaint: Shortness of Breath Stated Complaint: Shortness of Breath Time Seen by Provider: 09/08/17 14:58 - History of Present Illness Initial Comments: 09/08/17 15:10 76 yo M w a hx of asthma, hypertension, hyperlipidemia, GERD, asbestosis, [place]( 2013, s/p cardiac catheterization), rectal CA, facial CA, and anemia, is here because he became short of breath this morning while he was watching TV. He took a breathing treatment at home, he believes it was albuterol, and now he is able to breath much better. Denies chest pain, fevers, recent infections, recent travel, headache, dizziness , abdominal pain. 09/08/17 15:11 09/08/17 15:21 09/08/17 15:42 Past History - Past Medical History Allergies/Adverse Reactions: Allergies Allergy/AdvReac Type Severity Reaction Status Date / Time No Known Allergies Allergy Verified 09/08/17 14:23 Home Medications: Ambulatory Orders Aspirin [ASA -] 81 mg PO DAILY #30 tab.chew 12/02/15 Atorvastatin Ca [Lipitor] 80 mg PO HS #30 tablet 12/02/15 Metoprolol Succinate [Toprol XL -] 25 mg PO DAILY 01/08/16 Lisinopril 10 mg PO BID 01/09/16 Clopidogrel Bisulfate [Clopidogrel] 75 mg PO DAILY 09/22/16 Pantoprazole Sodium 40 mg PO DAILY 09/22/16 Albuterol Sulfate [Proair Respiclick] 90 mcg IH DAILY 09/23/16 Ascorbic Acid [Vitamin C -] 500 mg PO ASDIR 03/04/17 Iron Ps Complex/B12/Folic Acid [Poly-Iron 150 Forte Capsule] 1 each PO ASDIR 02/07 Mupirocin Ointment [Bactroban] 1 applic TP TID #1 tube 07/15/17 Mupirocin Ointment [Bactroban 2% Ointment -] 1 applic TP BID #1 tube 09/08/17 Anemia: Yes (IRON DEFICIENCY ANEMIA) Asthma: Yes Cancer: Yes (RECTAL CANCER, FACIAL CA) Cardiac Disorders: Yes ([place] 12/03 09/04) CVA: No COPD: 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) CHF: No Dementia: No Diabetes: No GI Disorders: Yes (GERD,GASTRODUODENITIS,GASTRITIS) Disorders: No HTN: Yes Hypercholesterolemia: Yes Kidney Stones: No Liver Disease: No Seizures: No Thyroid Disease: No Lung CA: No - Surgical History Abdominal Surgery: Yes (BILATERAL INGUINAL HERNIA REPAIR) Appendectomy: Yes Cardiac Surgery: Yes (STENT RIGHT/BALLOON LEFT SIDE) Cholecystectomy: No Lung Surgery: No Neurologic Surgery: No Orthopedic Surgery: No - Reproductive History Testicular Surgery: No - Immunization History Immunization Up to Date: Yes - Suicide/Smoking/Psychosocial Hx Smoking Status: No Smoking History: Never smoked Have you smoked in the past 12 months: Yes Number of Cigarettes Smoked Daily: 2 Information on smoking cessation initiated: No 'Breaking Loose' booklet given: 10/11/14 Hx Alcohol Use: No Drug/Substance Use Hx: No Substance Use Type: None, Alcohol Hx Substance Use Treatment: No Review of Systems - Review of Systems Comments:: 09/08/17 15:47 RESPIRATORY: Positive: shortness of breath Absent: cough, dyspnea with exertion, orthopnea, wheezing, stridor,hemoptysis CONSTITUTIONAL: Absent: fever, chills, diaphoresis, generalized weakness, malaise, loss of appetite HEENT: Absent: rhinorrhea, nasal congestion, throat pain, throat swelling, difficulty swallowing, mouth swelling, ear pain, eye pain, visual Changes CARDIOVASCULAR: Absent: chest pain, syncope, palpitations, irregular heart rate, lightheadedness , peripheral edema GASTROINTESTINAL: Absent: abdominal pain, abdominal distension, nausea, vomiting, diarrhea, constipation, melena, hematochezia GENITOURINARY: Absent: dysuria, frequency, urgency, hesitancy, hematuria, flank pain, genital pain MUSCULOSKELETAL: Absent: myalgia, arthralgia, joint swelling SKIN: Positive: Rash Absent: itching, pallor HEMATOLOGIC/IMMUNOLOGIC: Absent: easy bleeding, easy bruising, lymphadenopathy, frequent infections ENDOCRINE: Absent: unexplained weight gain, unexplained weight loss, heat intolerance, cold intolerance NEUROLOGIC: Absent: headache, focal weakness or paresthesias, dizziness, unsteady gait, seizure, mental status changes, bladder or bowel incontinence PSYCHIATRIC: Absent: anxiety, depression, suicidal or homicidal ideation, hallucinations. *Physical Exam - Vital Signs Last Vital Signs Temp Pulse Resp BP Pulse Ox 97.7 F 60 20 131/81 95 09/08/17 14:23 09/08/17 14:23 09/08/17 14:23 09/08/17 14:23 09/08/17 14:23 - Physical Exam Comments: 09/08/17 15:49 PULMONARY: mild evidence of respiratory distress. There is decreased airflow in the left lower lobe, otherwise he is clear to auscultation bilaterally. No wheezing, rales or rhonchi. GENERAL: The patient is jittery and says its because of his breathing treatment ( probably albuterol) Well developed, well nourished. Awake and alert. HEENT: Normocephalic, atraumatic. PERRLA, EOMI. No conjunctival pallor. Sclera are non- icteric. Moist mucous membranes. Oropharynx is clear. NECK: Supple. Full ROM. No JVD. Carotid pulses 2+ and symmetric, without bruits. No thyromegaly. No lymphadenopathy. CARDIOVASCULAR: Regular rate and rhythm. No murmurs, rubs, or gallops. Distal pulses are 2+ and symmetric. ABDOMINAL: Soft. Non-tender. Non-distended. No rebound or guarding. No organomegaly. Normoactive bowel sounds. MUSCULOSKELETAL Normal range of motion at all joints. No bony deformities or tenderness. No CVA tenderness. EXTREMITIES: No cyanosis. No clubbing. No edema. No calf tenderness. SKIN: Left arm: erythematous area on left forearm. Warm and dry. Normal capillary refill. No jaundice. NEUROLOGICAL: Alert, awake, appropriate. Cranial nerves 2-12 intact. No deficits to light touch and temperature in face, upper extremities and lower extremities. No motor deficits in the in face, upper extremities and lower extremities. Normoreflexic in the upper and lower extremities. Normal speech. Toes are down-going bilaterally. Gait is normal without ataxia. PSYCHIATRIC: Cooperative. Good eye contact. Appropriate mood and affect. Heart Score/ECG Review - Electrocardiogram EKG: Normal - Age Age: >/= 65 - ECG Intrepretation Rhythm: PVC(s) - ECG Impressions Normal ECG: Yes Non-specific ST Elevation: No Ischemic Changes: No Bradycardia: No Medical Decision Making - Medical Decision Making 09/08/17 16:00 76 yo M hx of asthma here after an episode of SOB this afternoon while watching TV. He took a breathing treatment and felt better. Vitals stable. Plan: CXR, 2nd breathing treatment, re-assess. Dispo: Patient felt better after duoneb. Vitals stable, no SOB or difficulty breathing. Sending him home. 09/08/17 16:00 09/08/17 18:11 *DC/Admit/Observation/Transfer Diagnosis at time of Disposition: Asthma attack - Discharge Dispostion Disposition: HOME Condition at time of disposition: Improved Decision to Admit order: No - Prescriptions Prescriptions: Mupirocin Ointment [Bactroban 2% Ointment -] 1 applic TP BID #1 tube - Referrals Referrals: Bakari Ellsworth MD [Primary Care Provider] - - Patient Instructions Printed Discharge Instructions: Asthma -- Adult Additional Instructions: Please make sure to schedule an appointment with your PCP in the next 7-10 days. Come back to the ER if your symptoms worsen, you develop a fever or with any other serious concerns. We are prescribing an antibiotic to your pharmacy for the rash on your arm. - Post Discharge Activity
[2017-09-08] MEDS ORDERED: ALBUTEROL SO4 2.5/IPRATROPIUM 0.5 INH SOL 3 ML VIAL.NEB. NEB ONE ×2 (15:13→15:54)
--- NOTE | 2017-09-08 17:29 | PDOC ---
Attending Attestation - Medical Decision Making 09/08/17 17:31 Chest X-ray was reviewed by Dr. Sun and over-read by Radiology. Impression: Imaging reveals a large heart, large hiatal hernia, pleural calcifications, prominent knob and coarse central findings. An acute chest process is not seen. There are degenerative changes with wedging. Since 04/27/2017, there is no change of an adverse nature. Documentation prepared by Maty Lovell, acting as medical biller coder for Juwan Sun MD. <Maty Lovell - Last Filed: 09/08/17 17:31> - Resident Resident Name: Shawn Smith - ED Attending Attestation I have performed the following: I have examined & evaluated the patient, The case was reviewed & discussed with the resident, I agree w/resident's findings & plan, Exceptions are as noted - HPI HPI: 09/08/17 17:24 The patient is a 76 year old male with a significant past medical history of asbestosis, anemia, asthma, GERD, gastroduodenitis, gastritis, hypertension, hyperlipidemia, [place] (2013, s/p cardiac catheterization), rectal CA who presents to the emergency department complaining of a few hours of shortness of breath. This morning while watching TV he became short of breath and took albuterol with relief but came to ER for evaluation. Pt reports SOB feels like his asthma. 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 The patient denies chest pain, headache, and dizziness. Denies fevers, chills, nausea, vomiting, diarrhea, and constipation. Denies cough Denies dysuria, frequency, urgency, and hematuria. Allergies: NKA Past surgical history: cardiac catheterization (2013), bilateral inguinal hernia repair, cardiac stent right side, cardiac balloon left side, appendectomy Social history: No reported cigarette, alcohol, or drug use. PCP: Dr. Joanne Ellsworth - Physicial Exam PE: 09/08/17 17:23 GENERAL: Awake, alert, and fully oriented, in no acute distress. Ambulating in ED requesting to go home. EYES: PERRLA, EOMI, sclera anicteric, conjunctiva clear ENT: Auricles normal inspection, hearing grossly normal, nares patent, oropharynx clear without exudates. Moist mucosa NECK: Normal ROM, supple, no lymphadenopathy, JVD, or masses LUNGS: Breath sounds equal, clear to auscultation bilaterally. No wheezes, and no crackles HEART: Regular rate and rhythm, normal S1 and S2, no murmurs, rubs or gallops ABDOMEN: Soft, nontender, normoactive bowel sounds. No guarding, no rebound. No masses EXTREMITIES: Normal range of motion, no edema. No clubbing or cyanosis. No cords, erythema, or tenderness NEUROLOGICAL: Normal speech, cranial nerves intact, negative pronator drift, 5/ 5 strength in all 4 extremities, normal sensation to light touch in all 4 extremities, normal cerebellar exam, normal gait, normal reflexes and tone SKIN: L forearm with excoriated erythematous papules coalescing into plaques with honey colored crusting on a few lesions. No induration. Otherwise, warm, Dry, normal turgor, no rashes or lesions noted. - Medical Decision Making 09/08/17 17:29 76yo M with MMP including asthma presents to the ED with SOB that resolved after home breathing treatment, CXR unchanged. Asymptomatic during ED stay. Arm with rash consistent with impetigo. Will check EKG to r/o changes and likely DC. <Juwan Sun - Last Filed: 09/08/17 18:11> Heart Score/ECG Review #1 09/08/17 18:09 Twelve-lead EKG was performed and reviewed by me. Sinus rhythm, rate 65. + occasional PVC. Normal axis, no ELISEO. No significant changes compared to EKG from 04/27/17 <Juwan Sun - Last Filed: 09/08/17 18:11>
[2017-09-08 18:05] VITALS: BP 128/75; PULSE 75; TEMP 97.6
[2017-09-08] MEDS ORDERED: MUPIROCIN 2% TOPICAL OINTMENT 22 GM TUBE TP SCH (22:00)
--- NOTE | 2017-09-09 12:10 | EKG ---
Test Reason : Blood Pressure : / mmHG Vent. Rate : 065 BPM Atrial Rate : 065 BPM P-R Int : 114 ms QRS Dur : 084 ms QT Int : 432 ms P-R-T Axes : 000 006 018 degrees QTc Int : 449 ms SINUS RHYTHM WITH OCCASIONAL PREMATURE VENTRICULAR COMPLEXES OTHERWISE NORMAL ECG WHEN COMPARED WITH ECG OF 27-APR-2017 07:43, NO SIGNIFICANT CHANGE WAS FOUND Confirmed by LILY ZAVALA MD ([id number]) on 09/09/2017 12:10:46 PM Referred By: Confirmed By:LILY ZAVALA MD
== END 2017-09-08 18:10 | disposition home or self-care (01) ==
LOC: JER 14:07
PROC: 3E0F7GC Introduction of Other Therapeutic Substance into Respiratory Tract, Via Natural or Artificial Opening (ICD-10-PCS; principal; 2017-09-08)
DX: J45.901 Unspecified asthma with (acute) exacerbation (principal); I25.10 Atherosclerotic heart disease of native coronary artery without angina pectoris; I10 Essential (primary) hypertension; Z95.5 Presence of coronary angioplasty implant and graft; K21.9 Gastro-esophageal reflux disease without esophagitis; J61 Pneumoconiosis due to asbestos and other mineral fibers; D50.8 Other iron deficiency anemias; Z85.048 Personal history of other malignant neoplasm of rectum, rectosigmoid junction, and anus; Z85.828 Personal history of other malignant neoplasm of skin; Z87.19 Personal history of other diseases of the digestive system
CPT/HCPCS: 71046-TC-FY; 93005; 93010; 99282-25; J7620

== ENCOUNTER 2018-08-11 11:11 | Emergency (ER) | payer OTHER, BC ==
[2018-08-11 11:35] VITALS: BMI 24.0
[2018-08-11] MEDS ORDERED: ALBUTEROL SO4 2.5/IPRATROPIUM 0.5 INH SOL 3 ML VIAL.NEB. NEB ONE ×2 (12:00→12:29)
[2018-08-11] MEDS ORDERED: DEXAMETHASONE SOD PHOSPHATE 10 MG/1 ML VIAL IM ONE (12:00)
[2018-08-11] MEDS ORDERED: DEXAMETHASONE SOD PHOSPHATE 10 MG/1 ML VIAL ONE (12:29)
[2018-08-11 13:02] LABS: BASO % 0.6 % (0-2.0); EOS % 3.4 % (0-4.5); HEMATOCRIT 40.7 % (35.4-49); HEMOGLOBIN 13.8 GM/dL (11.7-16.9); LYMPH % 15.5 % (8-40); MCH 35.8 pg (25.7-33.7); MEAN CELL VOLUME 105.3 fl (80-96); MEAN PLT VOLUME 7.3 fl (7.5-11.1); MONO % 10.5 % (3.8-10.2); PLATELET COUNT 237 K/MM3 (134-434); RBC 3.87 M/mm3 (4.00-5.60); RDW 14.5 % (11.9-15.9); WHITE BLOOD COUNT 6.5 K/mm3 (4.0-10.0)
[2018-08-11 13:33] LABS: BILIRUBIN,TOTAL 0.9 mg/dL (0.2-1); BLOOD UREA NITROGEN 8.8 mg/dL (7-18); CALCIUM 9.1 mg/dL (8.5-10.1); CREATININE 0.9 mg/dL (0.55-1.3); POTASSIUM 4.3 mmol/L (3.5-5.1); TOT PROT 7.6 g/dl (6.4-8.2)
[2018-08-11 13:52] LABS: ANISOCYTOSIS 1+; MACROCYTOSIS 2+; PLATELET ESTIMATE NORMAL
--- NOTE | 2018-08-11 14:08 | PDOC ---
History of Present Illness - General History Source: Patient Exam Limitations: No Limitations <Oneyda Hubbard - Last Filed: 08/11/18 21:15> <Sabine Osei - Last Filed: 08/12/18 08:35> - General Chief Complaint: Respiratory Stated Complaint: Shortness of Breath Time Seen by Provider: 08/11/18 11:38 Past History - Travel Traveled outside of the country in the last 30 days: No Close contact w/someone who was outside of country & ill: No - Past Medical History Anemia: Yes (IRON DEFICIENCY ANEMIA) Asthma: Yes Cancer: Yes (RECTAL CANCER, FACIAL CA) Cardiac Disorders: Yes ([place] 12/03 09/04) CVA: No COPD: 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) CHF: No Dementia: No Diabetes: No GI Disorders: Yes (GERD,GASTRODUODENITIS,GASTRITIS) Disorders: No HTN: Yes Hypercholesterolemia: Yes Kidney Stones: No Liver Disease: No Seizures: No Thyroid Disease: No Lung CA: No - Surgical History Abdominal Surgery: Yes (BILATERAL INGUINAL HERNIA REPAIR) Appendectomy: Yes Cardiac Surgery: Yes (STENT RIGHT/BALLOON LEFT SIDE) Cholecystectomy: No Lung Surgery: No Neurologic Surgery: No Orthopedic Surgery: No - Reproductive History Testicular Surgery: No - Immunization History Immunization Up to Date: Yes - Suicide/Smoking/Psychosocial Hx Smoking Status: No Smoking History: Never smoked Have you smoked in the past 12 months: Yes Number of Cigarettes Smoked Daily: 2 'Breaking Loose' booklet given: 10/11/14 Hx Alcohol Use: Yes Drug/Substance Use Hx: No Substance Use Type: None, Alcohol Hx Substance Use Treatment: No <Oneyda Hubbard - Last Filed: 08/11/18 21:15> <Sabine Osei - Last Filed: 08/12/18 08:35> - Past Medical History Allergies/Adverse Reactions: Allergies Allergy/AdvReac Type Severity Reaction Status Date / Time No Known Allergies Allergy Verified 08/11/18 11:30 Home Medications: Ambulatory Orders Aspirin [ASA -] 81 mg PO DAILY #30 tab.chew 12/02/15 Atorvastatin Ca [Lipitor] 80 mg PO HS #30 tablet 12/02/15 Metoprolol Succinate [Toprol XL -] 25 mg PO DAILY 01/08/16 Lisinopril 10 mg PO BID 01/09/16 Clopidogrel Bisulfate [Clopidogrel] 75 mg PO DAILY 09/22/16 Pantoprazole Sodium 40 mg PO DAILY 09/22/16 Albuterol Sulfate [Proair Respiclick] 90 mcg IH DAILY 09/23/16 Ascorbic Acid [Vitamin C -] 500 mg PO ASDIR 03/04/17 Iron Ps Complex/B12/Folic Acid [Poly-Iron 150 Forte Capsule] 1 each PO ASDIR 02/07 Azithromycin [Zithromax 250mg Tablets -] 250 mg PO UTDICT #6 tab 08/11/18 Methylprednisolone [Medrol Dose Trev] 4 mg PO ASDIR #21 tablet 08/11/18 Review of Systems - Review of Systems Able to Perform ROS?: Yes Comments:: 08/11/18 14:05 CONSTITUTIONAL: Absent: fever, chills, diaphoresis, generalized weakness, malaise, loss of appetite HEENT: Absent: rhinorrhea, nasal congestion, throat pain, throat swelling, difficulty swallowing, mouth swelling, ear pain, eye pain, visual Changes CARDIOVASCULAR: Absent: chest pain, loss of consciousness, palpitations, irregular heart rate, peripheral edema RESPIRATORY: Present: productive cough, shortness of breath, chest tightness Absent: dyspnea with exertion, orthopnea, wheezing, stridor, hemoptysis GASTROINTESTINAL: Absent: abdominal pain, abdominal distension, nausea, vomiting, diarrhea, constipation, melena, hematochezia GENITOURINARY: Absent: dysuria, frequency, urgency, hesitancy, hematuria, flank pain, genital pain MUSCULOSKELETAL: Absent: myalgia, arthralgia, joint swelling SKIN: Absent: rash, itching, pallor HEMATOLOGIC/IMMUNOLOGIC: Absent: easy bleeding, easy bruising, lymphadenopathy, frequent infections ENDOCRINE: Absent: unexplained weight gain, unexplained weight loss, heat intolerance, cold intolerance NEUROLOGIC: Absent: headache, focal weakness or paresthesias, dizziness, unsteady gait, seizure, mental status changes, bladder or bowel incontinence PSYCHIATRIC: Absent: anxiety, depression, suicidal or homicidal ideation, hallucinations. Is the patient limited Macedonian proficient: No <Oneyda Hubbard - Last Filed: 08/11/18 21:15> *Physical Exam - Vital Signs Last Vital Signs Temp Pulse Resp BP Pulse Ox 98.6 F 60 22 H 120/67 99 08/11/18 11:34 08/11/18 11:34 08/11/18 11:34 08/11/18 11:34 08/11/18 11:34 - Physical Exam Comments: 08/11/18 14:05 GENERAL: Well developed, well nourished. Awake and alert. No acute distress. HEENT: Normocephalic, atraumatic. PERRLA, EOMI. No conjunctival pallor. Sclera are non- icteric. Moist mucous membranes. Oropharynx is clear. NECK: Supple. Full ROM. No JVD. Carotid pulses 2+ and symmetric, without bruits. No thyromegaly. No lymphadenopathy. CARDIOVASCULAR: Regular rate and rhythm. No murmurs, rubs, or gallops. Distal pulses are 2+ and symmetric. PULMONARY: No evidence of respiratory distress. Lungs with wheezing at the bases b/l. No rales or rhonchi. ABDOMINAL: Soft. Non-tender. Non-distended. No rebound or guarding. No organomegaly. Normoactive bowel sounds. MUSCULOSKELETAL Normal range of motion at all joints. No bony deformities or tenderness. No CVA tenderness. EXTREMITIES: No cyanosis. No clubbing. No edema. No calf tenderness. SKIN: Warm and dry. Normal capillary refill. No rashes. No jaundice. NEUROLOGICAL: Alert, awake, appropriate. Cranial nerves 2-12 intact. No deficits to light touch and temperature in face, upper extremities and lower extremities. No motor deficits in the in face, upper extremities and lower extremities. Normoreflexic in the upper and lower extremities. Normal speech. Toes are down- going bilaterally. Gait is normal without ataxia. PSYCHIATRIC: Cooperative. Good eye contact. Appropriate mood and affect. <Oneyda Hubbard - Last Filed: 08/11/18 21:15> - Vital Signs Last Vital Signs Temp Pulse Resp BP Pulse Ox 98.1 F 57 L 18 151/82 98 08/11/18 15:21 08/11/18 15:21 08/11/18 15:21 08/11/18 15:21 08/11/18 15:21 <Sabine Osei - Last Filed: 08/12/18 08:35> ED Treatment Course - LABORATORY CBC & Chemistry Diagram: 08/11/18 12:50 08/11/18 12:50 - ADDITIONAL ORDERS Additional order review: Laboratory Results 08/11/18 12:50 Sodium 131 L Potassium 4.3 Chloride 98 Carbon Dioxide 28 Anion Gap 5 L BUN 8.8 Creatinine 0.9 Est GFR (CKD-EPI)AfAm 94.48 Est GFR (CKD-EPI)NonAf 81.52 Random Glucose 88 Calcium 9.1 Total Bilirubin 0.9 AST 87 H ALT 97 H Alkaline Phosphatase 83 Total Protein 7.6 Albumin 4.0 08/11/18 12:50 RBC 3.87 L MCV 105.3 H MCHC 34.0 RDW 14.5 MPV 7.3 L D Neutrophils % 70.0 D Lymphocytes % 15.5 Monocytes % 10.5 H Eosinophils % 3.4 Basophils % 0.6 - RADIOLOGY Radiology Studies Ordered: Category Date Time Status CHEST PA & LAT [RAD] Stat Radiology 08/11/18 12:00 Taken - Medications Given in the ED: ED Medications Discontinued Medications Generic Name Dose Route Start Last Admin Trade Name Freq PRN Reason Stop Dose Admin Albuterol/Ipratropium 1 amp 08/11/18 12:00 08/11/18 12:42 Duoneb - NEB 08/11/18 12:01 1 amp ONCE ONE Administration Dexamethasone Sodium Phosphate 10 mg 08/11/18 12:00 08/11/18 12:42 Decadron Injection - IM 08/11/18 12:01 10 mg ONCE ONE Administration <Oneyda Hubbard - Last Filed: 08/11/18 21:15> - LABORATORY CBC & Chemistry Diagram: 08/11/18 12:50 08/11/18 12:50 - ADDITIONAL ORDERS Additional order review: 08/11/18 12:50 RBC 3.87 L MCV 105.3 H MCHC 34.0 RDW 14.5 MPV 7.3 L D Neutrophils % 70.0 D Lymphocytes % 15.5 Monocytes % 10.5 H Eosinophils % 3.4 Basophils % 0.6 - Medications Given in the ED: ED Medications Discontinued Medications Generic Name Dose Route Start Last Admin Trade Name Freq PRN Reason Stop Dose Admin Albuterol/Ipratropium 1 amp 08/11/18 12:00 08/11/18 12:42 Duoneb - NEB 08/11/18 12:01 1 amp ONCE ONE Administration Dexamethasone Sodium Phosphate 10 mg 08/11/18 12:00 08/11/18 12:42 Decadron Injection - IM 08/11/18 12:01 10 mg ONCE ONE Administration <Sabine Osei - Last Filed: 08/12/18 08:35> Medical Decision Making - Medical Decision Making 08/11/18 14:16 the patient is a 77-year-old male with past medical history of asthma, mesothelioma, presents to the ER today with 2 days of shortness of breath and difficulty breathing. The patient states that he has been having a productive cough with white sputum. Today he notes that he was finding it hard to catch his breath after coughing fits. He tried using his home nebulizer treatments with mild relief of his symptoms. Denies fevers, chills, shortness of breath on exertion, chest pain, nausea, vomiting and diarrhea. (+) Smoking history. A/P: URI versus bronchitis On exam patient with faint wheezes at the bases of the lungs bilaterally. Good aeration to the bases Basic labs, EKG and chest x-ray ordered. 10 mg of Decadron given IM with a DuoNeb treatment for symptomatic relief. chest x-ray shows no acute pathology at this time. EKG shows sinus bradycardia, normal intervals and axis. No acute ST-T wave changes Basic lab work is within normal limits, no white blood cell count. Patient reports feeling better after medications and that his breathing is open up. Most likely a viral illness VSS, afebrile. O2 Sat 99% on RA We will discharge home with Medrol Dosepak, and a Z-Trev; patient to follow-up with his primary care provider I discussed the physical exam findings, ancillary test results and final diagnoses with the patient. I answered all of the patient's questions. The patient was satisfied with the care received and felt comfortable with the discharge plan and treatment plan. The Patient agrees to follow up with the primary care physician/specialist within 24-72 hours. Return precautions were given. <Oneyda Hubbard - Last Filed: 08/11/18 21:15> *DC/Admit/Observation/Transfer - Discharge Dispostion Decision to Admit order: No <Oneyda Hubbard - Last Filed: 08/11/18 21:15> - Attestations Physician Attestion: I reviewed the case with the mid-level practitioner and agree with the mid- level practitioner's assessment, diagnosis and disposition. <Sabine Osei - Last Filed: 08/12/18 08:35> Diagnosis at time of Disposition: Upper respiratory infection Qualifiers: URI type: unspecified URI Qualified Code(s): J06.9 - Acute upper respiratory infection, unspecified - Discharge Dispostion Disposition: HOME Condition at time of disposition: Stable - Prescriptions Prescriptions: Azithromycin [Zithromax 250mg Tablets -] 250 mg PO UTDICT #6 tab Methylprednisolone [Medrol Dose Trev] 4 mg PO ASDIR #21 tablet - Referrals Referrals: Bakari Ellsworth MD [Primary Care Provider] - Andres Coker MD [Staff Physician] - - Patient Instructions Printed Discharge Instructions: DI for Acute Bronchitis Additional Instructions: You were evaluated for your difficulty breathing today Take the medications as prescribed Use your albuterol nebulizers every 4 hours as needed for difficulty breathing Follow up with Dr. Coker this week Return to the ER for increased difficulty breathing or if you have any changes in your symptoms - Post Discharge Activity
[2018-08-11 15:22] VITALS: BP 151/82; PULSE 57; TEMP 98.1
--- NOTE | 2018-08-12 12:56 | EKG ---
Test Reason : Blood Pressure : / mmHG Vent. Rate : 055 BPM Atrial Rate : 055 BPM P-R Int : 140 ms QRS Dur : 082 ms QT Int : 468 ms P-R-T Axes : 030 005 027 degrees QTc Int : 447 ms SINUS BRADYCARDIA OTHERWISE NORMAL ECG WHEN COMPARED WITH ECG OF 08-SEP-2017 17:38, PREMATURE VENTRICULAR COMPLEXES ARE NO LONGER PRESENT Confirmed by AKSHAT SEAMAN MD ([id number]) on 08/12/2018 12:56:21 PM Referred By: Confirmed By:AKSHAT SEAMAN MD
== END 2018-08-11 15:22 | disposition home or self-care (01) ==
LOC: JER 11:11
PROC: 3E0F7GC Introduction of Other Therapeutic Substance into Respiratory Tract, Via Natural or Artificial Opening (ICD-10-PCS; principal; 2018-08-11)
PROC: 3E023GC Introduction of Other Therapeutic Substance into Muscle, Percutaneous Approach (ICD-10-PCS; 2018-08-11)
DX: J06.9 Acute upper respiratory infection, unspecified (principal); J45.909 Unspecified asthma, uncomplicated; C45.9 Mesothelioma, unspecified
CPT/HCPCS: 36415; 71046-TC-FY; 80053; 85025; 93005; 93010; 94640; 96372; 99282-25; J1100

== ENCOUNTER 2018-08-12 13:04 | Emergency (ER) | payer OTHER, BC ==
[2018-08-12 13:26] VITALS: PULSE 74; BMI 24.0
--- NOTE | 2018-08-12 13:44 | PDOC ---
History of Present Illness - General Chief Complaint: Shortness of Breath Stated Complaint: SOB Time Seen by Provider: 08/12/18 13:35 - History of Present Illness Initial Comments: Andres Martins is a 77yo man with a PMH of asthma, COPD, mesothelioma, [place] s/p 2x stents, HTN, HLD, GERD, rectal CA who presents with shortness of breath that has worsened over the afternoon today. He was seen in the ED yesterday with an asthma/COPD exacerbation and improved with a nebulizer and decadron, discharged with azithromycin and solu-medrol. He states that he was doing well yesterday evening and this morning, but 1-2 hours ago he started to feel short of breath again; he feels that it started to get worse after he had soup for lunch. He tried his home nebulizer without significant relief. He reports increased cough during the same time period. He has a feeling of chest tightness similar to yesterday. His SOB and chest tightness are not exertional, and he does not feel that anything has made them better or worse. He denies any other new or changing symptoms. Past History - Past Medical History Allergies/Adverse Reactions: Allergies Allergy/AdvReac Type Severity Reaction Status Date / Time No Known Allergies Allergy Verified 08/12/18 13:23 Home Medications: Ambulatory Orders Aspirin [ASA -] 81 mg PO DAILY #30 tab.chew 12/02/15 Atorvastatin Ca [Lipitor] 80 mg PO HS #30 tablet 12/02/15 Metoprolol Succinate [Toprol XL -] 25 mg PO DAILY 01/08/16 Lisinopril 10 mg PO BID 01/09/16 Clopidogrel Bisulfate [Clopidogrel] 75 mg PO DAILY 09/22/16 Pantoprazole Sodium 40 mg PO DAILY 09/22/16 Albuterol Sulfate [Proair Respiclick] 90 mcg IH DAILY 09/23/16 Ascorbic Acid [Vitamin C -] 500 mg PO ASDIR 03/04/17 Iron Ps Complex/B12/Folic Acid [Poly-Iron 150 Forte Capsule] 1 each PO ASDIR 02/07 Azithromycin [Zithromax 250mg Tablets -] 250 mg PO UTDICT #6 tab 08/11/18 Methylprednisolone [Medrol Dose Trev] 4 mg PO ASDIR #21 tablet 08/11/18 Anemia: Yes (IRON DEFICIENCY ANEMIA) Asthma: Yes Cancer: Yes (RECTAL CANCER, FACIAL CA) Cardiac Disorders: Yes ([place] 12/03 09/04) CVA: No COPD: 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) CHF: No Dementia: No Diabetes: No GI Disorders: Yes (GERD,GASTRODUODENITIS,GASTRITIS) Disorders: No HTN: Yes Hypercholesterolemia: Yes Kidney Stones: No Liver Disease: No Seizures: No Thyroid Disease: No Lung CA: No - Surgical History Abdominal Surgery: Yes (BILATERAL INGUINAL HERNIA REPAIR) Appendectomy: Yes Cardiac Surgery: Yes (STENT RIGHT/BALLOON LEFT SIDE) Cholecystectomy: No Lung Surgery: No Neurologic Surgery: No Orthopedic Surgery: No - Reproductive History Testicular Surgery: No - Immunization History Immunization Up to Date: Yes - Suicide/Smoking/Psychosocial Hx Smoking Status: No Smoking History: Never smoked Have you smoked in the past 12 months: No Number of Cigarettes Smoked Daily: 2 Information on smoking cessation initiated: No 'Breaking Loose' booklet given: 10/11/14 Hx Alcohol Use: No Drug/Substance Use Hx: No Substance Use Type: None, Alcohol Hx Substance Use Treatment: No Review of Systems - Review of Systems Comments:: General: No fevers, no chills, no weight or appetite change, no malaise HEENT: No changes in vision, no changes in hearing, no congestion, no sore throat CV: No chest pain, no palpitations, no LE edema Pulm: See HPI GI: No nausea or vomiting, no change in bowel habits, no melena : No frequency, no urgency, no dysuria Musc: No back pain, no joint swelling, no recent injury Skin: No rash, no lesions, no erythema Endo: No excessive thirst, no heat/cold intolerance Heme: No unusual bruising or bleeding, no swollen glands Neuro: No syncope, no numbness/tingling, no focal weakness Vasc: No claudication Psych: No recent change in mood, no SI or HI *Physical Exam - Vital Signs Last Vital Signs Temp Pulse Resp BP Pulse Ox 98.6 F 74 20 150/98 100 08/12/18 13:23 08/12/18 13:23 08/12/18 13:23 08/12/18 13:23 08/12/18 13:40 - Physical Exam Comments: General: Comfortable, no acute distress HEENT: PERRL, EOMI, MMM, voice normal, normal neck ROM Cards: RRR, no murmur appreciated Pulm: Comfortable on room air, clear to auscultation bilaterally, no wheezing or crackles appreciated. Normal RR. Breath sounds in all lung woo b/l Abd: Soft, nontender, nondistended Ext: Atraumatic. No LE edema. ROM intact. Vasc: Extremities WWP Skin: Normal color, no rashes or lesions Neuro: A&Ox3, CN grossly intact, normal speech, motor/sensory grossly intact and symmetric Psych: Mood appropriate to situation ED Treatment Course - LABORATORY CBC & Chemistry Diagram: 08/12/18 15:08 08/12/18 15:08 Medical Decision Making - Medical Decision Making 08/12/18 13:44 Andres Martins is a 77yo man with a PMH of asthma, COPD, mesothelioma, [place] s/p 2x stents, HTN, HLD, GERD, rectal CA, treated in the ED yesterday for COPD exacerbation (nebs and decadron in the ED, solu-medrol and azithromycin sent for home) who presents with initial improvement overnight then worsening SOB and chest tightness after lunch today. He took the prescribed steroids and abx this morning, and there was no symptom improvement with his home albuterol. - Appears comfortable, no wheezing or crackles appreciated, audible breath sounds in all lung woo bilaterally. Ddx includes asthma/COPD, tightness 2/2 reflux, cannot rule out ACS though given normal vitals, benign exam, not related to activity this is less likely - Labs, xray, ekg completed yesterday. Will repeat EKG, CBC, CMP. Adding trop today - Paco, reassess 08/12/18 14:13 - Pt has not yet received any treatment, but he reports feeling "a lot better" - Will complete workup despite improvement 08/12/18 15:27 - Symptoms resolved after nebs - EKG completed, reviewed. Unchanged from previous. NSR, HR 73, normal axis, normal intervals. No ST changes 08/12/18 15:57 - Labs reviewed. No concerning abnormalities - Will discuss w/ patient. Recommend 2nd trop given cardiac history 08/12/18 16:13 - Pt declining repeat trop. He has an echo scheduled on 08/21 and a follow up appointment with Dr Torres on 08/29. Will d/c home given normal labs, resolution of symptoms, and low suspicion for ACS as a cause of the SOB - Discussed return precautions w/ Mr Martins prior to discharge Discussed with Dr Clark. Cara Alamo PGY1 *DC/Admit/Observation/Transfer Diagnosis at time of Disposition: Shortness of breath - Discharge Dispostion Disposition: HOME Condition at time of disposition: Stable Decision to Admit order: No - Referrals Referrals: Bakari Ellsworth MD [Primary Care Provider] - Ramin Torres MD [Staff Physician] - - Patient Instructions Printed Discharge Instructions: DI for Shortness of Breath Additional Instructions: Discharge Instructions: You were seen in the ED for shortness of breath. Your symptoms improved with a breathing treatment. Your lab tests did not show any concerning abnormalities. Home Care and Follow Up: - Continue to take the solu-medrol and azithromycin that were prescribed yesterday. Follow the directions provided with the prescriptions - Use your regular inhalers as prescribed up to every 4 hours as needed - Call your primary doctor on Tuesday morning to schedule follow up within the next 2-3 days - Make sure you go to your previously scheduled cardiology appointments next month - Seek immediate medical care for any worsening of your symptoms, difficulty breathing, chest pain, shortness of breath with exercise, sweating or lightheadedness, or any other medical emergency. - Post Discharge Activity
[2018-08-12] MEDS ORDERED: ALBUTEROL SO4 2.5/IPRATROPIUM 0.5 INH SOL 3 ML VIAL.NEB. NEB ONE ×2 (14:10→15:05)
--- NOTE | 2018-08-12 14:36 | PDOC ---
Documentation entered by Jane Grigsby SCRIBE, acting as scribe for Choco Clark MD. Choco Clark MD: This documentation has been prepared by the Seb gonzalez Brenda, SCRIBE, under my direction and personally reviewed by me in its entirety. I confirm that the documentation accurately reflects all work, treatment, procedures, and medical decision making performed by me. Attending Attestation - Resident Resident Name: Cara Alamo - ED Attending Attestation I have performed the following: I have examined & evaluated the patient, The case was reviewed & discussed with the resident, I agree w/resident's findings & plan, Exceptions are as noted - HPI HPI: 08/12/18 14:15 The patient is a 77 year old male, with a significant PMH of asthma, hypertension, hyperlipidemia, GERD, asbestosis, [place](2014, s/p cardiac catheterization), rectal CA, facial CA, and anemia, who presents to the emergency department with shortness of breath. Pt reports 3 days of cough and SOB. He was seen in this ED yesterday for COPD exacerbation, where he was treated and felt better. Pt was NM'ed with Zpack and prednisone, which he took today. The patient states, however that today post lunch he began to feel a sudden onset of chest pressure and shortness of breath, similar to the episode he had yesterday. He notes trying his nebulizer, which did not help, prompting his arrival to the ED. However, upon arrival to ED, pt notes that he feels much better. Currently denies CP/SOB. The patient denies headache and dizziness. Denies fever, chills, nausea, vomiting, diarrhea and constipation. Allergies: NKA Past surgical history: GI: Bilateral inguinal hernia repair. Cardio: stent on right and balloon on left. Social history: Tobacco user. 2 cigarettes/day. PCP: Dr. Joanne Ellsworth Base Filler: Dr. Torres - Physicial Exam PE: 08/12/18 14:32 GENERAL: Awake, alert, and fully oriented, in no acute distress. HEAD: No signs of trauma EYES: PERRLA, EOMI, sclera anicteric, conjunctiva clear ENT: Auricles normal inspection, hearing grossly normal, nares patent, oropharynx clear without exudates. Moist mucosa NECK: Nontender, no stepoffs, Normal ROM, supple, no lymphadenopathy, JVD, or masses LUNGS: Breath sounds equal, clear to auscultation bilaterally. No wheezes, and no crackles HEART: Regular rate and rhythm, normal S1 and S2, no murmurs, rubs or gallops ABDOMEN: Soft, nontender, normoactive bowel sounds. No guarding, no rebound. No masses EXTREMITIES: Normal range of motion, no edema. No clubbing or cyanosis. No cords, erythema, or tenderness NEUROLOGICAL: Cranial nerves II through XII intact. 5/5 strength and sensation in all extremities, Normal speech, normal gait, normal cerebellar function SKIN: Warm, Dry, normal turgor, no rashes or lesions noted. - Medical Decision Making 08/12/18 14:33 77 M with SOB and chest tightness, now resolved. Pt currently being treated for COPD flare. No wheezing on exam today but suspect pt's symptoms were 2/2 COPD. Will r/o ACS with 2 trops. PE is unlikely, as pt with no tachypnea/tachycardia/ hypoxia, no evidence of DVT on exam. - Labs, trop - EKG - Nebs - Reassess 08/12/18 15:57 Labs wnl Trop negative x 1 Pt refusing to stay for 2nd trop, stating that he feels completely better. Discussed with pt risk of potentially missing ACS if 2nd trop is not drawn, but pt adamantly refusing to stay any longer Low suspicion for ACS given pt is asymptomatic at this time with no EKG changes. Pt is well appearing, with normal vitals. Clinically stable for DC at this time. I discussed the physical exam findings, ancillary test results and final diagnoses with the patient. I answered all of the patient's questions. The patient was satisfied with the care received and felt comfortable with the discharge plan and treatment plan. The patient agrees to follow up with the primary care physician within 24-72 hours.
[2018-08-12 15:37] LABS: BASO % 0.1 % (0-2.0); HEMATOCRIT 37.3 % (35.4-49); HEMOGLOBIN 12.8 GM/dL (11.7-16.9); LYMPH % 5.3 % (8-40); MCH 36.3 pg (25.7-33.7); MCHC 34.2 g/dl (32.0-35.9); MEAN PLT VOLUME 7.9 fl (7.5-11.1); MONO % 3.5 % (3.8-10.2); NEUT % 91.1 % (42.8-82.8); PLATELET COUNT 223 K/MM3 (134-434); RBC 3.52 M/mm3 (4.00-5.60); RDW 14.1 % (11.9-15.9); WHITE BLOOD COUNT 7.2 K/mm3 (4.0-10.0)
[2018-08-12 15:47] LABS: ALBUMIN 3.5 g/dl (3.4-5.0); ALK PHOS 81 U/L (45-117); ANION GAP 8 MMOL/L (8-16); BILIRUBIN,TOTAL 0.4 mg/dL (0.2-1); CALCIUM 8.6 mg/dL (8.5-10.1); CHLORIDE 104 mmol/L (98-107); CO2 25 mmol/L (21-32); GLUCOSE,RANDOM 127 mg/dL (74-106); N-TERMINAL BNP 295.4 pg/ml (5-450); POTASSIUM 4.9 mmol/L (3.5-5.1); SGOT/AST 51 U/L (15-37); SGPT/ALT 78 U/L (13-61); SODIUM 137 mmol/L (136-145); TOT PROT 6.9 g/dl (6.4-8.2)
[2018-08-12 18:01] VITALS: BP 145/80; TEMP 98.2
[2018-08-12 18:21] LABS: ANISOCYTOSIS 2+; MACROCYTOSIS 2+; PLATELET ESTIMATE ADEQUATE
--- NOTE | 2018-08-13 13:13 | EKG ---
Test Reason : Blood Pressure : / mmHG Vent. Rate : 073 BPM Atrial Rate : 073 BPM P-R Int : 120 ms QRS Dur : 084 ms QT Int : 398 ms P-R-T Axes : 043 007 049 degrees QTc Int : 438 ms NORMAL SINUS RHYTHM INCREASED R/S RATIO IN V1, CONSIDER EARLY TRANSITION OR POSTERIOR INFARCT ABNORMAL ECG Confirmed by AKSHAT SEAMAN MD ([id number]) on 08/13/2018 1:13:33 PM Referred By: Confirmed By:AKSHAT SEAMAN MD
== END 2018-08-12 18:16 | disposition home or self-care (01) ==
LOC: JER 13:04
PROC: 3E0F7GC Introduction of Other Therapeutic Substance into Respiratory Tract, Via Natural or Artificial Opening (ICD-10-PCS; principal; 2018-08-12)
DX: R06.02 Shortness of breath (principal); J45.909 Unspecified asthma, uncomplicated; I25.2 Old myocardial infarction; I10 Essential (primary) hypertension; E78.5 Hyperlipidemia, unspecified; K21.9 Gastro-esophageal reflux disease without esophagitis; Z85.048 Personal history of other malignant neoplasm of rectum, rectosigmoid junction, and anus; C45.9 Mesothelioma, unspecified
CPT/HCPCS: 80053; 82550; 83880; 84484; 85025; 93005; 93010; 94640; 99283-25

== ENCOUNTER 2018-11-01 16:37 | Observation (INO) | payer OTHER, BC ==
--- NOTE | 2018-11-01 16:58 | PDOC ---
Rapid Medical Evaluation Chief Complaint: Chest Pain Time Seen by Provider: 11/01/18 16:51 Medical Evaluation: Allergies Allergy/AdvReac Type Severity Reaction Status Date / Time No Known Allergies Allergy Verified 11/01/18 16:51 Vital Signs Temp Pulse Resp BP Pulse Ox 97.8 F 64 16 104/56 L 98 11/01/18 16:52 11/01/18 16:52 11/01/18 16:52 11/01/18 16:52 11/01/18 16:52 11/01/18 16:56 The patient presents for chest pain starting this afternoon after lunch. States that it is a sharp pain. Exam: RRR, S1 S2, (m/r/g) Orders: labs EKG Pt to proceed to the ER for further evaluation Discharge Disposition - Diagnosis Chest pain Qualifiers: Chest pain type: unspecified Qualified Code(s): R07.9 - Chest pain, unspecified - Referrals - Patient Instructions - Post Discharge Activity
--- NOTE | 2018-11-01 17:30 | PDOC ---
History of Present Illness <Samantha Mueller - Last Filed: 11/01/18 21:09> <Sabine Davis - Last Filed: 11/02/18 23:54> - General Chief Complaint: Chest Pain Stated Complaint: CHEST PAIN Time Seen by Provider: 11/01/18 16:51 Past History <Samantha Mueller - Last Filed: 11/01/18 21:09> - Past Medical History Anemia: Yes (IRON DEFICIENCY ANEMIA) Asthma: Yes Cancer: Yes (RECTAL CANCER, FACIAL CA) Cardiac Disorders: Yes ([place] 12/03 09/04) CVA: No COPD: 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) CHF: No Dementia: No Diabetes: No GI Disorders: Yes (GERD,GASTRODUODENITIS,GASTRITIS) Disorders: No HTN: Yes Hypercholesterolemia: Yes Kidney Stones: No Liver Disease: No Seizures: No Thyroid Disease: No Lung CA: No - Surgical History Abdominal Surgery: Yes (BILATERAL INGUINAL HERNIA REPAIR) Appendectomy: Yes Cardiac Surgery: Yes (STENT RIGHT/BALLOON LEFT SIDE) Cholecystectomy: No Lung Surgery: No Neurologic Surgery: No Orthopedic Surgery: No - Reproductive History Testicular Surgery: No - Immunization History Immunization Up to Date: Yes - Suicide/Smoking/Psychosocial Hx Smoking Status: No Smoking History: Never smoked Have you smoked in the past 12 months: No Number of Cigarettes Smoked Daily: 2 'Breaking Loose' booklet given: 10/11/14 Hx Alcohol Use: Yes Drug/Substance Use Hx: No Substance Use Type: None, Alcohol Hx Substance Use Treatment: No <Sabine Davis - Last Filed: 11/02/18 23:54> - Past Medical History Allergies/Adverse Reactions: Allergies Allergy/AdvReac Type Severity Reaction Status Date / Time No Known Allergies Allergy Verified 11/01/18 16:51 Home Medications: Ambulatory Orders Aspirin [ASA -] 81 mg PO DAILY #30 tab.chew 12/02/15 Atorvastatin Ca [Lipitor] 80 mg PO HS #30 tablet 12/02/15 Metoprolol Succinate [Toprol XL -] 25 mg PO DAILY 01/08/16 Lisinopril 10 mg PO BID 01/09/16 Albuterol Sulfate [Proair Respiclick] 90 mcg IH DAILY 09/23/16 *Physical Exam - Vital Signs Last Vital Signs Temp Pulse Resp BP Pulse Ox 97.8 F 64 16 104/56 L 98 11/01/18 16:52 11/01/18 16:52 11/01/18 16:52 11/01/18 16:52 11/01/18 16:52 <Samantha Mueller - Last Filed: 11/01/18 21:09> - Vital Signs Last Vital Signs Temp Pulse Resp BP Pulse Ox 97.8 F 64 16 104/56 L 98 11/01/18 16:52 11/01/18 16:52 11/01/18 16:52 11/01/18 16:52 11/01/18 16:52 <Sabine Davis - Last Filed: 11/02/18 23:54> Heart Score/ECG Review - History History: Slightly suspicious - Electrocardiogram EKG: Normal - Age Age: >/= 65 - Risk Factors Risk Factors Heart Score: Yes Hx Hypercholesterolemia, Yes Hx Hypertension, Yes Positive family hx of cardiac disease Based on the list above the patient has:: >/=3 risk factors or Hx atherosclerotic disease - Troponin Troponin: </= normal limit - Score Heart Score - Total: 4 <Sabine Davis - Last Filed: 11/02/18 23:54> ED Treatment Course - LABORATORY CBC & Chemistry Diagram: 11/01/18 17:44 11/01/18 17:44 - ADDITIONAL ORDERS Additional order review: Laboratory Results 11/01/18 11/01/18 11/01/18 17:44 17:44 17:44 PT with INR 11.20 INR 0.95 Sodium 140 Potassium 3.5 Chloride 101 Carbon Dioxide 25 Anion Gap 14 BUN 18.0 Creatinine 1.2 Est GFR (CKD-EPI)AfAm 66.73 Est GFR (CKD-EPI)NonAf 57.57 Random Glucose 91 Calcium 8.6 Magnesium 1.7 L Total Bilirubin 0.4 AST 24 ALT 22 Alkaline Phosphatase 74 Creatine Kinase 90 Troponin I < 0.02 Total Protein 6.9 Albumin 3.8 11/01/18 17:44 RBC 3.66 L MCV 107.3 H MCHC 33.4 RDW 13.6 MPV 9.2 D Neutrophils % 62.0 D Lymphocytes % 22.9 D Monocytes % 11.7 H D Eosinophils % 2.9 D Basophils % 0.5 D <Samantha Mueller - Last Filed: 11/01/18 21:09> - LABORATORY CBC & Chemistry Diagram: 11/02/18 06:13 11/02/18 06:13 <Sabine Davis - Last Filed: 11/02/18 23:54> Medical Decision Making - Medical Decision Making HPI: 77yo M with PMH of [place] s/p stent and balloon, HTN, HLD, asthma, ETOH abuse presenting with chest pain x 1 hr. The pain is described as "sharp" and " feeling like he wants to belch" and it is non-radiating. Nothing makes it better or worse. No nausea, vomiting, or diaphoresis. Feels different than from when he had his [place] as he did not have chest pain when he had the [place]. Not having chest pain currently as it went away on its own. Endorsing some lightheadedness. Denies hemoptysis, no recent surgical history, no recent immobilization, no hormone use, no history of DVT or PE. States his last stress test and ECHO were one month ago and were "fine." Last alcoholic drink about one hour ago. No fevers or chills. PCP: Dr. Bakari Ellsworth Cardio: Dr. Torres ROS: Constitutional: no fever, no chills HEENT: no throat pain, no dysphagia Cardiovascular: +chest pain, no palpitations Respiratory: +cough, no shortness of breath Gastrointestinal: no abdominal pain, no nausea Genitourinary: no dysuria, no hematuria Musculoskeletal: no myalgia, no arthralgia Skin: no rash, no itching Neurologic: no headache, +lightheaded PE: General: Awake, alert, and fully oriented, in no acute distress Head: No signs of trauma Eyes: EOMI, sclera anicteric ENT: Moist mucus membranes Neck: Normal ROM, supple Lungs: Lungs clear, Normal breath sounds Cardio: Regular rhythm, S1 and S2 present Abdomen: Soft, nontender Extremities: Normal range of motion, Distal pulses present, No calf tenderness SKIN: Warm, Dry, normal turgor Neurologic: Cranial nerves II through XII grossly intact. Normal speech ED Course/MDM: DDX including but not limited to ACS, GERD, Alcohol induced cardiomyopathy, arrhythmia, aortic dissection, metabolic derangement, unstable angina, PE EKG, labs, CXR EKG: rate 64, QTc 464, NSR 11/01/18 17:30 Patient states chest pain has returned, simethicone ordered per his request. CXR without acute pathology, my impression CMP Sodium 140 mmol/L (136-145) 11/01/18 17:44 Potassium 3.5 mmol/L (3.5-5.1) 11/01/18 17:44 Chloride 101 mmol/L (98-107) 11/01/18 17:44 Carbon Dioxide 25 mmol/L (21-32) 11/01/18 17:44 Anion Gap 14 MMOL/L (8-16) 11/01/18 17:44 BUN 18.0 mg/dL (7-18) 11/01/18 17:44 Creatinine 1.2 mg/dL (0.55-1.3) 11/01/18 17:44 Est GFR (CKD-EPI)AfAm 66.73 11/01/18 17:44 Est GFR (CKD-EPI)NonAf 57.57 11/01/18 17:44 Random Glucose 91 mg/dL (74-106) 11/01/18 17:44 Calcium 8.6 mg/dL (8.5-10.1) 11/01/18 17:44 Magnesium 1.7 mg/dL (1.8-2.4) L 11/01/18 17:44 Total Bilirubin 0.4 mg/dL (0.2-1) 11/01/18 17:44 AST 24 U/L (15-37) 11/01/18 17:44 ALT 22 U/L (13-61) 11/01/18 17:44 Alkaline Phosphatase 74 U/L (45-117) 11/01/18 17:44 Creatine Kinase 90 U/L (26-308) 11/01/18 17:44 Troponin I < 0.02 ng/ml (0.00-0.05) 11/01/18 17:44 Total Protein 6.9 g/dl (6.4-8.2) 11/01/18 17:44 Albumin 3.8 g/dl (3.4-5.0) 11/01/18 17:44 Tpn undetectable We will call the patient's emergency medcl emt, Dr. Torres, Page sent to service. I am told by the bleach machine operator that Dr. Grant is extrusion former. 11/01/18 18:56 CBC WBC 7.1 K/mm3 (4.0-10.0) 11/01/18 17:44 RBC 3.66 M/mm3 (4.00-5.60) L 11/01/18 17:44 Hgb 13.1 GM/dL (11.7-16.9) 11/01/18 17:44 Hct 39.2 % (35.4-49) 11/01/18 17:44 MCV 107.3 fl (80-96) H 11/01/18 17:44 MCH 35.9 pg (25.7-33.7) H 11/01/18 17:44 MCHC 33.4 g/dl (32.0-35.9) 11/01/18 17:44 RDW 13.6 % (11.9-15.9) 11/01/18 17:44 Plt Count 154 K/MM3 (134-434) D 11/01/18 17:44 MPV 9.2 fl (7.5-11.1) D 11/01/18 17:44 Absolute Neuts (auto) 4.4 K/mm3 (1.5-8.0) 11/01/18 17:44 Neutrophils % 62.0 % (42.8-82.8) D 11/01/18 17:44 Lymphocytes % 22.9 % (8-40) D 11/01/18 17:44 Monocytes % 11.7 % (3.8-10.2) H D 11/01/18 17:44 Eosinophils % 2.9 % (0-4.5) D 11/01/18 17:44 Basophils % 0.5 % (0-2.0) D 11/01/18 17:44 Nucleated RBC % 0 % (0-0) 11/01/18 17:44 No leukocytosis Patient signed out to Dr. Mueller and night team 11/01/18 19:16 <Sabine Davis - Last Filed: 11/02/18 23:54> *DC/Admit/Observation/Transfer - Discharge Dispostion Decision to Admit order: Yes <Samantha Mueller - Last Filed: 11/01/18 21:09> - Discharge Dispostion Decision to Admit order: Yes <Sabine Davis - Last Filed: 11/02/18 23:54> Diagnosis at time of Disposition: Chest pain Qualifiers: Chest pain type: unspecified Qualified Code(s): R07.9 - Chest pain, unspecified - Discharge Dispostion Condition at time of disposition: Guarded
--- NOTE | 2018-11-01 18:14 | PDOC ---
Attending Attestation - Resident Resident Name: Heena Davisth - ED Attending Attestation I have performed the following: I have examined & evaluated the patient, The case was reviewed & discussed with the resident, I agree w/resident's findings & plan, Exceptions are as noted - HPI HPI: 11/01/18 18:13 Mr. Martins is a 77 yo M h/o HTN, HLD, CAD [place] (2014, s/p cardiac catheterization) , asthma, GERD, asbestosis, who presents with chest pain Pt reported sudden onset left chest pain Chest pain resolved but then recurred Pt described pain as sharp, no radiation, not triggered with exertion No associated shortness of breath Does not feel like GERD/Reflux He typically does not have exertional chest pain Reportedly had a stress test 1 month ago which was reportedly normal PCP: Dr. Joanne Ellsworth Software Application Tester: Dr. Torres 11/01/18 18:48 - Physicial Exam PE: 11/01/18 18:16 GENERAL: The patient is in no acute distress. ENT: Ears normal, nares patent, oropharynx clear without exudates. Moist mucous membranes. NECK: Normal range of motion, supple LUNGS: Breath sounds equal, clear to auscultation bilaterally. No wheezes, and no crackles. HEART:Regular rate and rhythm, normal S1 and S2 without murmur, rub or gallop. ABDOMEN: Soft, nontender, normoactive bowel sounds. EXTREMITIES: Normal range of motion, no edema. NEUROLOGICAL: Cranial nerves II through XII grossly intact. Normal speech. No focal neurological deficits. SKIN: Warm, Dry, normal turgor, no rashes or lesions noted. - Medical Decision Making 11/01/18 18:16 Twelve-lead EKG was performed and reviewed by me. There is normal sinus rhythm with a normal rate. The axis is normal. The intervals are normal. There are no ST or T wave abnormalities. Impression: Normal twelve-lead EKG 11/01/18 18:48 Laboratory Tests 11/01/18 11/01/18 11/01/18 17:44 17:44 17:44 INR 0.95 Sodium 140 Potassium 3.5 Chloride 101 Carbon Dioxide 25 BUN 18.0 Creatinine 1.2 Creatine Kinase 90 Troponin I < 0.02 11/01/18 18:51 Will contact cardiology ? OBS
[2018-11-01 18:23] LABS: INR 0.95 (0.83-1.09); PROTHROMBIN TIME (PATIENT) 11.2 SEC (9.7-13.0)
[2018-11-01] MEDS ORDERED: SIMETHICONE 80 MG TAB.CHEW (FP) PO ONE (18:32)
[2018-11-01 18:33] LABS: BASO % 0.5 % (0-2.0); EOS % 2.9 % (0-4.5); HEMATOCRIT 39.2 % (35.4-49); HEMOGLOBIN 13.1 GM/dL (11.7-16.9); LYMPH % 22.9 % (8-40); MCH 35.9 pg (25.7-33.7); MCHC 33.4 g/dl (32.0-35.9); MEAN CELL VOLUME 107.3 fl (80-96); MEAN PLT VOLUME 9.2 fl (7.5-11.1); MONO % 11.7 % (3.8-10.2); PLATELET COUNT 154 K/MM3 (134-434); RBC 3.66 M/mm3 (4.00-5.60); RDW 13.6 % (11.9-15.9); WHITE BLOOD COUNT 7.1 K/mm3 (4.0-10.0)
[2018-11-01 18:42] LABS: ALBUMIN 3.8 g/dl (3.4-5.0); BILIRUBIN,TOTAL 0.4 mg/dL (0.2-1); CALCIUM 8.6 mg/dL (8.5-10.1); CREATININE 1.2 mg/dL (0.55-1.3); MAGNESIUM 1.7 mg/dL (1.8-2.4); POTASSIUM 3.5 mmol/L (3.5-5.1); TOT PROT 6.9 g/dl (6.4-8.2)
[2018-11-01 19:36] LABS: ANISOCYTOSIS 2+; MACROCYTOSIS 2+; PLATELET ESTIMATE ADEQUATE
--- NOTE | 2018-11-01 22:04 | HP ---
Admitting History and Physical - Primary Care Physician PCP: Dr. Ellsworth - Admission Chief Complaint: chest pain History of Present Illness: 77 year old male with PMHx of HTN, HLD, CAD [place] (2013, s/p cardiac catheterization stent/ balloon), anemia, rectal/facial CA, asthma, GERD, asbestosis, ETOH abuse arrived to ED for chest pain after having lunch. Patient point to epigastric pain complains of it be sharp and feeling of wanting to belch, pain is non-radiating. Patient was initially gone, now has returned. Patient denies taking any medication to relief pain. Patient denies nausea, vomiting, lightheadedness. Patien states his last stress test and ECHO were one month ago and results were fine. History Source: Patient Limitations to Obtaining History: No Limitations - Past Medical History Cardiovascular: Yes: CAD (cad--s/p stenting), HTN, [place], Mitral Insufficiency, Pulmonary Hypertension Pulmonary: Yes: Asthma, COPD Gastrointestinal: Yes: GERD Heme/Onc: Yes: Anemia - Past Surgical History Past Surgical History: Yes: Hernia Repair (B/L inguinal hernia repair), Stent ( stent/ ballon left side) - Smoking History Smoking history: Never smoked Have you smoked in the past 12 months: No - Alcohol/Substance Use Hx Alcohol Use: Yes (occasional ) History of Substance Use: reports: None Home Medications - Allergies Allergies/Adverse Reactions: Allergies Allergy/AdvReac Type Severity Reaction Status Date / Time No Known Allergies Allergy Verified 11/01/18 16:51 - Home Medications Home Medications: Ambulatory Orders Aspirin [ASA -] 81 mg PO DAILY #30 tab.chew 12/02/15 Atorvastatin Ca [Lipitor] 80 mg PO HS #30 tablet 12/02/15 Metoprolol Succinate [Toprol XL -] 25 mg PO DAILY 01/08/16 Lisinopril 10 mg PO BID 01/09/16 Albuterol Sulfate [Proair Respiclick] 90 mcg IH DAILY 09/23/16 Family Disease History - Family Disease History Family Disease History: Diabetes: Father, CA: Father, Respiratory: Son Review of Systems - Review of Systems Constitutional: reports: No Symptoms Eyes: reports: No Symptoms HENT: reports: No Symptoms Neck: reports: No Symptoms Cardiovascular: reports: Chest Pain Respiratory: reports: No Symptoms Gastrointestinal: reports: Bloating Genitourinary: reports: No Symptoms Musculoskeletal: reports: No Symptoms Integumentary: reports: No Symptoms Neurological: reports: No Symptoms Endocrine: reports: No Symptoms Physical Examination Vital Signs: Vital Signs Temperature 97.8 F 11/01/18 16:52 Pulse Rate 64 11/01/18 16:52 Respiratory Rate 16 11/01/18 16:52 Blood Pressure 104/56 L 11/01/18 16:52 O2 Sat by Pulse Oximetry (%) 98 11/01/18 16:52 Constitutional: Yes: Well Nourished, Calm Eyes: Yes: Conjunctiva Clear, EOM Intact HENT: Yes: Atraumatic, Normocephalic Neck: Yes: Supple, Trachea Midline Cardiovascular: Yes: Regular Rate and Rhythm Respiratory: Yes: Regular, CTA Bilaterally Gastrointestinal: Yes: Normal Bowel Sounds, Soft, Tenderness, Epigastrium Musculoskeletal: Yes: WNL Extremities: Yes: WNL Integumentary: Yes: WNL Neurological: Yes: Alert, Oriented Labs: CBC, BMP 11/01/18 17:44 11/01/18 17:44 Imaging - Results Chest X-ray: Report Reviewed (without acute pathology,) EKG: Report Reviewed (Normal sinus rhythm) Other: Report Reviewed (trops # 1 negative, pending # 2) Problem List - Problems (1) Chest pain Code(s): R07.9 - CHEST PAIN, UNSPECIFIED Qualifiers: Chest pain type: unspecified Qualified Code(s): R07.9 - Chest pain, unspecified (2) HTN (hypertension) Code(s): I10 - ESSENTIAL (PRIMARY) HYPERTENSION (3) CAD (coronary artery disease) Code(s): I25.10 - ATHSCL HEART DISEASE OF [place] CORONARY ARTERY W/O ANG PCTRS (4) Anemia Code(s): D64.9 - ANEMIA, UNSPECIFIED Qualifiers: Anemia type: iron deficiency (5) GERD (gastroesophageal reflux disease) Code(s): K21.9 - GASTRO-ESOPHAGEAL REFLUX DISEASE WITHOUT ESOPHAGITIS (6) HLD (hyperlipidemia) Code(s): E78.5 - HYPERLIPIDEMIA, UNSPECIFIED Assessment/Plan 77 year old male with PMHx of HTN, HLD, CAD [place] (2013, s/p cardiac cath stent/ balloon), anemia, rectal/facial CA, asthma, GERD, asbestosis, ETOH abuse arrived to ED for chest pain after having lunch. Patient point to epigastric pain complains of it be sharp and feeling of wanting to belch, pain is non- radiating. #Chest pain r/o ACS tele obs -EKG: NSR - trop # 1 negative, pending #2 - if noted with elevate trops, EKG changes follow up cardio consult in AM #GERD - given simethicon 80 mg x1 in ED - started protonix 40 mg po daily - give mylanta q 6 PRN # HTN/HLD/CAD -Atorvastatin Ca 80 mg PO HS - Metoprolol Succinate 25 mg PO DAILY - Lisinopril 10 mg PO BID # ashtma/COPD - Albuterol Sulfate 90 mcg IH DAILY DVT PPX: Heparin BID DIET: MITCH, LOW FAT/CHOL Visit type - Emergency Visit Emergency Visit: Yes ED Registration Date: 11/01/18 Care time: The patient presented to the Emergency Department on the above date and was hospitalized for further evaluation of their emergent condition. - New Patient This patient is new to me today: Yes Date on this admission: 11/01/18 - Critical Care Critical Care patient: No
[2018-11-01] MEDS ORDERED: ALBUTEROL SO4 8 GM HFA INHALER IH PRN (22:40)
[2018-11-02 07:24] LABS: BLOOD UREA NITROGEN 21.2 mg/dL (7-18); CALCIUM 8.4 mg/dL (8.5-10.1); CREATININE 0.8 mg/dL (0.55-1.3); POTASSIUM 4.1 mmol/L (3.5-5.1)
[2018-11-02 07:30] LABS: HEMATOCRIT 35.4 % (35.4-49); HEMOGLOBIN 12.2 GM/dL (11.7-16.9); MCH 36.5 pg (25.7-33.7); MCHC 34.4 g/dl (32.0-35.9); MEAN CELL VOLUME 106.3 fl (80-96); MEAN PLT VOLUME 9.1 fl (7.5-11.1); PLATELET COUNT 134 K/MM3 (134-434); RBC 3.33 M/mm3 (4.00-5.60); RDW 13.6 % (11.9-15.9); WHITE BLOOD COUNT 6.1 K/mm3 (4.0-10.0)
[2018-11-02] MEDS ORDERED: metoPROLOL SUCCINATE 25 MG TAB.SR.24H (FP) PO SCH (10:00)
[2018-11-02] MEDS ORDERED: PATIENT'S OWN MEDICATION (NON-FORMULARY) (Albuterol Sulfate [Proair Respiclick] 90 MCG) IH SCH (10:00)
[2018-11-02] MEDS ORDERED: PANTOPRAZOLE 40 MG TABLET (FP) PO SCH (10:00)
[2018-11-02] MEDS: LISINOPRIL 10 MG TABLET (FP) PO SCH ×2 (10:57→21:55)
[2018-11-02] MEDS: HEPARIN NA (PORCINE) 5,000 UNITS/ML 1ML VIAL SQ SCH ×2 (10:57→21:54)
--- NOTE | 2018-11-02 11:24 | PN ---
Progress Note (short form) - Note Progress Note: pt examined in ER has mild left sided pain tells me he ate [place] food yesterday and felt gassy , felt pressure in his chest Vital Signs - 24 hr 11/01/18 11/01/18 11/02/18 16:52 19:22 10:00 Temperature 97.8 F 98.2 F 97.8 F Pulse Rate 64 Pulse Rate [ 67 67 Left Apical] Respiratory 16 19 18 Rate Blood Pressure 104/56 L Blood Pressure 139/74 149/84 [Right Arm] O2 Sat by Pulse 98 95 94 L Oximetry (%) Current Medications Generic Name Dose Route Start Last Admin Trade Name Freq PRN Reason Stop Dose Admin Albuterol Sulfate 2 puff 11/01/18 22:40 Ventolin Hfa Inhaler - IH Q6H PRN SHORTNESS OF BREATH Atorvastatin Calcium 80 mg 11/02/18 22:00 Lipitor - PO HS JONE Heparin Sodium (Porcine) 5,000 unit 11/02/18 10:00 11/02/18 10:57 Heparin - SQ 5,000 unit BID JONE Administration Lisinopril 10 mg 11/02/18 10:00 11/02/18 10:57 Prinivil PO 10 mg BID JONE Administration Metoprolol Succinate 25 mg 11/02/18 10:00 11/02/18 10:57 Toprol Xl - PO 25 mg DAILY JONE Administration Pantoprazole Sodium 40 mg 11/02/18 10:00 11/02/18 10:57 Protonix - PO 40 mg DAILY JONE Administration Laboratory Results - last 24 hr 11/01/18 11/01/18 11/01/18 17:44 17:44 17:44 WBC 7.1 RBC 3.66 L Hgb 13.1 Hct 39.2 MCV 107.3 H MCH 35.9 H MCHC 33.4 RDW 13.6 Plt Count 154 D MPV 9.2 D Absolute Neuts (auto) 4.4 Neutrophils % 62.0 D Lymphocytes % 22.9 D Monocytes % 11.7 H D Eosinophils % 2.9 D Basophils % 0.5 D Nucleated RBC % 0 Platelet Estimate Adequate Anisocytosis 2+ Macrocytosis 2+ PT with INR INR Sodium 140 Potassium 3.5 Chloride 101 Carbon Dioxide 25 Anion Gap 14 BUN 18.0 Creatinine 1.2 Est GFR (CKD-EPI)AfAm 66.73 Est GFR (CKD-EPI)NonAf 57.57 Random Glucose 91 Calcium 8.6 Magnesium 1.7 L Total Bilirubin 0.4 AST 24 ALT 22 Alkaline Phosphatase 74 Creatine Kinase 90 Troponin I < 0.02 Total Protein 6.9 Albumin 3.8 11/01/18 11/01/18 11/02/18 17:44 22:54 06:13 WBC 6.1 RBC 3.33 L Hgb 12.2 Hct 35.4 MCV 106.3 H MCH 36.5 H MCHC 34.4 RDW 13.6 Plt Count 134 MPV 9.1 Absolute Neuts (auto) Neutrophils % Lymphocytes % Monocytes % Eosinophils % Basophils % Nucleated RBC % Platelet Estimate Anisocytosis Macrocytosis PT with INR 11.20 INR 0.95 Sodium Potassium Chloride Carbon Dioxide Anion Gap BUN Creatinine Est GFR (CKD-EPI)AfAm Est GFR (CKD-EPI)NonAf Random Glucose Calcium Magnesium Total Bilirubin AST ALT Alkaline Phosphatase Creatine Kinase Troponin I < 0.02 Total Protein Albumin 11/02/18 06:13 WBC RBC Hgb Hct MCV MCH MCHC RDW Plt Count MPV Absolute Neuts (auto) Neutrophils % Lymphocytes % Monocytes % Eosinophils % Basophils % Nucleated RBC % Platelet Estimate Anisocytosis Macrocytosis PT with INR INR Sodium 137 Potassium 4.1 Chloride 104 Carbon Dioxide 26 Anion Gap 7 L BUN 21.2 H Creatinine 0.8 Est GFR (CKD-EPI)AfAm 99.17 Est GFR (CKD-EPI)NonAf 85.56 Random Glucose 76 Calcium 8.4 L Magnesium Total Bilirubin AST ALT Alkaline Phosphatase Creatine Kinase Troponin I Total Protein Albumin S1 S2 RRR Lungs clear Abd-s oft, NT no edema PLAN check cardiac enzymes Cardiology eval Check Echo Tele monitoring last alcohol intake was a week ago per pt ativan as needed for withdrawals Problem List - Problems (1) Chest pain Code(s): R07.9 - CHEST PAIN, UNSPECIFIED Qualifiers: Chest pain type: unspecified Qualified Code(s): R07.9 - Chest pain, unspecified (2) HLD (hyperlipidemia) Code(s): E78.5 - HYPERLIPIDEMIA, UNSPECIFIED (3) HTN (hypertension) Code(s): I10 - ESSENTIAL (PRIMARY) HYPERTENSION
--- NOTE | 2018-11-02 13:55 | ECHO ---
Name: MARJAN CLEMENTS Exam:Adult Echocardiogram Study Date: 11/02/2018 11:50 AM Age: 77 yrs Reason For Study: CHEST PAIN Height: 64 in Weight: 140 lb BSA: 1.7 m2 MMode/2D Measurements & Calculations Ao root diam: 3.3 cm LVOT diam: 1.9 cm LVLd ap4: 4.4 cm SV(MOD-sp4): 54.8 ml EDV(MOD-sp4): 96.7 ml LVLs ap4: 3.2 cm ESV(MOD-sp4): 41.9 ml LAV (MOD-bp): 73.2 ml TAPSE: 2.5 cm RV S Nishant: 13.5 cm/sec Doppler Measurements & Calculations MV E max nishant: 75.2 cm/sec MVA(VTI): 2.6 cm2 MV A max nishant: 89.2 cm/sec MV V2 max: 81.9 cm/sec MV E/A: 0.84 MV max P.7 mmHg MV dec time: 0.26 sec MV V2 mean: 44.2 cm/sec MV mean P.1 mmHg MV V2 VTI: 26.4 cm Ao V2 max: 166.4 cm/sec AI max nishant: 481.3 cm/sec Ao max P.4 mmHg AI max P.7 mmHg Ao V2 mean: 112.0 cm/sec Ao mean P.9 mmHg AI dec slope: 234.3 cm/sec2 Ao V2 VTI: 35.9 cm MARITZA(I,D): 1.9 cm2 AI P1/2t: 601.6 msec MARITZA(V,D): 1.8 cm2 LV V1 max P.1 mmHg MR max nishant: 617.5 cm/sec LV V1 mean P.6 mmHg MR max P.5 mmHg LV V1 max: 113.0 cm/sec LV V1 mean: 75.4 cm/sec LV V1 VTI: 25.2 cm SV(LVOT): 68.1 ml PA V2 max: 124.9 cm/sec PA max P.2 mmHg Med Peak E' Nishant: 5.8 cm/sec Med E/e': 13.0 Lat Peak E' Nishant: 5.7 cm/sec Lat E/e': 13.3 Procedure A complete two-dimensional transthoracic echocardiogram was performed (2D, M-mode, Doppler and color flow Doppler). Left Ventricle The left ventricular size, thickness and function are normal. The left ventricular ejection fraction is normal. Ejection Fraction = 55-60%. The left ventricular wall motion is normal. Right Ventricle The right ventricle is normal in size and function. Atria The left atrium is mildly dilated. Right atrial size is normal. Mitral Valve There is mild to moderate mitral regurgitation. Tricuspid Valve No tricuspid regurgitation. There was insufficient TR detected to calculate RV systolic pressure. Aortic Valve No hemodynamically significant valvular aortic stenosis. Mild aortic regurgitation. Pulmonic Valve There is no pulmonic valvular regurgitation. Great Vessels The aortic root is normal size. Pericardium/Pleura There is no pericardial effusion. Interpretation Summary The left ventricular size, thickness and function are normal The right ventricle is normal in size and function. The left atrium is mildly dilated. There is mild to moderate mitral regurgitation. Mild aortic regurgitation. MD Yosvany Dorsey 11/02/2018 01:55 PM
--- NOTE | 2018-11-02 14:56 | CON.CARD ---
Consult Consult Specialty:: cardio - History of Present Illness Chief Complaint: chest pain History of Present Illness: 77 yo M here with chest pain. has hiatal hernia/GERD and significant overlap of sx's from this and his prior UA/ACS sx's--including post-prandial (large steak) trigger twice. and pt poor ability to discern the two apart has known severe ICR of LCX lesion, very angulated vessel poor candidate for repeat PCI--med managed since 2015 cath. no ischemia 2016 yest after eating he felt very intense pain in upper abdomen close to lower rib margin. no "tearing" sensation or radiation including to back. no chest pain. thinks he never experienced this type of pain before, including at times of ACS previously. had intense gas feeling, voluminous flatulence, felt like had to belch but didn't come up. also states he clearly felt acid burning sensation in upper chest/throat no naus/vomiting no assctd diaph or sob. lasted about two hours then resolved. no more pain since PMH: CAD pulm asbestosis HPL - Past Medical History Cardio/Vascular: Yes: CAD (cad--s/p stenting), HTN, [place], Mitral Insufficiency, Pulmonary Hypertension Pulmonary: Yes: Asthma, COPD Gastrointestinal: Yes: GERD Hepatobiliary: Yes: Other (ALCOHOLIC HEPATITIS) Psych: Yes: Addictions (ex etoh abuse), Anxiety Dermatology: Yes: Cellulitis Additional Medical History: cad --s/p stenting. s/p inguinal hernia repair. - Past Surgical History Past Surgical History: Yes: Hernia Repair (B/L inguinal hernia repair), Stent ( stent/ ballon left side) - Alcohol/Substance Use Hx Alcohol Use: Yes (occasional ) History of Substance Use: reports: None - Smoking History Smoking history: Never smoked Have you smoked in the past 12 months: No Aproximately how many cigarettes per day: 2 Home Medications - Allergies Allergies/Adverse Reactions: Allergies Allergy/AdvReac Type Severity Reaction Status Date / Time No Known Allergies Allergy Verified 11/01/18 16:51 - Home Medications Home Medications: Ambulatory Orders Aspirin [ASA -] 81 mg PO DAILY #30 tab.chew 12/02/15 Atorvastatin Ca [Lipitor] 80 mg PO HS #30 tablet 12/02/15 Metoprolol Succinate [Toprol XL -] 25 mg PO DAILY 01/08/16 Lisinopril 10 mg PO BID 01/09/16 Albuterol Sulfate [Proair Respiclick] 90 mcg IH DAILY 09/23/16 Family Disease History - Family Disease History Family Disease History: Diabetes: Father, CA: Father, Respiratory: Son Review of Systems - Review of Systems Constitutional: denies: Chills, Fever Eyes: denies: Eye Pain HENT: denies: Nasal Congestion Neck: denies: Stiffness Cardiovascular: denies: Palpitations Respiratory: denies: Orthopnea, PND Gastrointestinal: denies: Diarrhea, Rectal Bleeding Genitourinary: denies: Burning, Hematuria Musculoskeletal: denies: Muscle Pain Integumentary: denies: Rash Neurological: denies: Numbness, Seizure, Syncope Endocrine: denies: Excessive Sweating Hematology/Lymphatic: denies: Excessive Bleeding Vital Signs: Vital Signs Temperature 98.2 F 11/02/18 14:09 Pulse Rate 64 11/02/18 14:09 Respiratory Rate 18 11/02/18 10:00 Blood Pressure 137/75 11/02/18 14:09 O2 Sat by Pulse Oximetry (%) 95 11/02/18 14:09 Constitutional: Yes: Well Nourished, No Distress Eyes: No: Sclera Icterus HENT: No: Nasal Congestion Neck: No: Decreased ROM Respiratory: Yes: CTA Bilaterally. No: Accessory Muscle Use, Rales, Wheezes Gastrointestinal: Yes: Normal Bowel Sounds. No: Distention, Hepatomegaly, Palpable Mass, Tenderness Cardiovascular: Yes: Regular Rate and Rhythm JVD: No Carotid Bruit: No PMI: Non-Displaced Heart Sounds: Yes: S1, S2. No: Gallop Murmur: No: Systolic Murmur, Diastolic Murmur Musculoskeletal: Yes: Other (No kyphosis) Extremities: No: Cool, Cyanosis Edema: No Peripheral Pulses: 2+ Left Carotid, 2+ Right Carotid, 2+ Left Doralis Pedis, 2+ Right Dorsalis Pedis Integumentary: No: Jaundice Neurological: Yes: Alert, Oriented (x3) Psychiatric: No: Agitated - Other Data Labs, Other Data: CBC, BMP 11/02/18 06:13 11/02/18 06:13 INR, PTT INR 0.95 (0.83-1.09) 11/01/18 17:44 Troponin, BNP 11/01/18 11/01/18 17:44 22:54 Troponin I < 0.02 < 0.02 Troponin, BNP 11/01/18 11/01/18 17:44 22:54 Troponin I < 0.02 < 0.02 Assessment/Plan [facility] 09/04: 90-95% mRCA--xience; severe/diffuse dz AV cont branch; <30% RPDA; mild , diffuse LAD; 90-95% ISR pLCX stent; mild, diffuse ramus (and small OM1); EDP 15, nl EF [facility] 09/02: Resolute YESSICA to 95% pLCX; PTCA of d-LCX; resid'l 30-50% mRCA, 50-60% dRCA (mild, diffluse dz others); EF 50% (mild diaphr HK, moderate posterobasal HK; EDP 18 MPI 10/06 (pers): moderate inferolateral scar, no ischemia; inferolat AK; normal overall LVEF; no TID Echo 08/2018: 1. This was a technically difficult study with suboptimal views. 2. The left ventricular size is normal. 3. Overall left ventricular systolic function is normal with, an EF between 55 - 60 %. 4. Akinesis of basal inferolateral wall. 5. The right ventricle is normal in size and function. 6. Left atrium is moderately dilated by volume. 7. There is mild aortic regurgitation. 8. Kboh-li-mkhmltnr mitral regurgitation is present (central jet). 9. Unable to estimate RVSP due to inadequate TR jet spectral doppler profile. Echo 11/09: nl LV/EF. nl RV. mild LAE. mild-mod MR. ECG: NSR, no ST-T changes, no q's--no change vs prior CXR: large hiatal hernia, retrocardiac changes incr slightly vs prior. no chf tele: NSR 60s Chest pain: -previously with post-prandial epigastric/chest pain at time of ACS (twice), unable to discern from usual GERD sx's -known ISR ischemic lesion in LCX, med managed (hi likelihood of recurrent ISR if stented, per interventional cardio) -now with post-prandial pain, troponin neg x 2 and ecg non-ischemic -description and location highly likely GI gas/bloating -would cont med mgmt of known CAD -repeat pharm MPI in am--if no new ischemia (i.e. LCX distribution only), will cont med mgmt -GERD/gas treatment per PMD, GI Chronic ischemic heart disease -S/P NSTEMI 2012, YESSICA (RESOLUTE) TO LCX; LVEF NORMAL WITH SMALL RESIDUAL SCAR INFEROLATERAL WALL. -2014 WITH NSTEMI--DE ROCCO PLAQUE RUPTURE IN RCA--S/P YESSICA (XIENCE). -RESIDUAL SEVERE ISR OF PROX LCX STENT--PER DR PATEL, VERY ANGULATED VESSEL WILL LIKELY BE PRONE TO RECURRENT ISR--MED THERAPY ADVISED. -NO ANGINA SINCE. -NO ISCHEMIA 2015 (INFEROLAT SCAR ONLY). -CONTINUE ASA, atorva 80, metopr 25 qd, lisinopril 10 bid (have not incr'd bb dose due to prior long pauses on tele felt likely vagally mediated) Nonrheumatic mitral regurgitation DYNAMIC MR AT TIME OF ACS, SEEN ON [place] [facility] THEN. NO NEW SX'S OR CHANGES IN PHYS EXAM. ECHO STABLE 2018 (MILD-MODERATE MR) Essential hypertension STABLE SAME MEDS. Secondary pulmonary hypertension SEVERE PULM HTN ON ECHO IN [place] [facility] S/P [place] 2012, NOT SEEN ON MULT ECHOES SINCE. 12/07 WITH AT LEAST MILD-MOD PULM HTN AND MILD RV HYPO SUSPECTED. LIKELY WHO 2 ETIOLOGY HERE GIVEN SUBSTRATE. ? WHO 3 COMPONENT (STELLA)--INTOLERANT OF CPAP, FOLLOW UP WITH PULM. NORMAL LA PRESSURE ON ECHO, NO SUSPECTED CHF. NO HYPOXIA ON 6MWT. ROUTINE ECHO SURVEILLANCE DOING (YEARLY) Chronic obstructive pulmonary disease 2012 PFT'S WITH MINIMAL OBSTR DEFECT, MILD RESP TO BD. ON MDI'S. H/O ASBESTOSIS W/PLEURAL PLAQUES, NO SIGNIF ILDZ FINDINGS ON CT, NO RESTR OR DLCO ABN ON PFT'S; PULM F/U Obstructive sleep apnea MODERATE STELLA WITH DESAT TO 81%. SEEING DR AYON--PT INTOLERANT OF CPAP Pure hypercholesterolemia SECONDARY PREVN; TOLERATING ATORVA 80. MED ADHERENCE/LAPSES AN ISSUE IN PAST--CURRENTLY IMPROVED. LABS GOOD 02/07, STABLE AT DR NAVARRO PER PT. SAME MEDS
--- NOTE | 2018-11-02 15:29 | EKG ---
Test Reason : Blood Pressure : / mmHG Vent. Rate : 063 BPM Atrial Rate : 063 BPM P-R Int : 150 ms QRS Dur : 086 ms QT Int : 454 ms P-R-T Axes : 040 -04 053 degrees QTc Int : 464 ms NORMAL SINUS RHYTHM NORMAL ECG WHEN COMPARED WITH ECG OF 12-AUG-2018 12:59, NO SIGNIFICANT CHANGE WAS FOUND Confirmed by DONA SORTO MD ([id number]) on 11/02/2018 3:29:17 PM Referred By: Confirmed By:DONA SORTO MD
[2018-11-02] MEDS ORDERED: LORazepam 2 MG/ML SDV VIAL IVPUSH PRN (15:39)
[2018-11-02 17:19] VITALS: BMI 21.3
[2018-11-02] MEDS ORDERED: ATORVASTATIN CA 80 MG TABLET (FP) PO SCH (22:00)
[2018-11-03] MEDS ORDERED: REGADENOSON 0.4 MG/5 ML PRE-FILLED SYRINGE IVPUSH ONE ×2 (09:15→10:36)
--- NOTE | 2018-11-03 10:35 | PN ---
Progress Note (short form) - Note Progress Note: Vital Signs Temp 97.9 F 11/03/18 06:00 Pulse 54 L 11/03/18 06:00 Resp 16 11/03/18 06:00 BP 148/80 11/03/18 06:00 Pulse Ox 97 11/03/18 05:47 Intake & Output 11/02/18 11/02/18 11/03/18 11:59 23:59 11:59 Intake Total 700 Balance 700 Weight 124 lb 6.4 oz Intake: Oral 700 Other: Voiding Method Toilet Toilet # Unmeasured Voids Void 1 1 Bowel Movement No No Height 5 ft 4 in Body Mass Index (BMI) 21.3 Weight Measurement Method Standing Scale Active Medications Albuterol Sulfate (Ventolin Hfa Inhaler -) 2 puff IH Q6H PRN PRN Reason: SHORTNESS OF BREATH Atorvastatin Calcium (Lipitor -) 80 mg PO HS COUNT INCLUDES THE [facility] Last Admin: 11/02/18 21:54 Dose: 80 mg Heparin Sodium (Porcine) (Heparin -) 5,000 unit SQ BID COUNT INCLUDES THE [facility] Last Admin: 11/02/18 21:54 Dose: 5,000 unit Lisinopril (Prinivil) 10 mg PO BID COUNT INCLUDES THE [facility] Last Admin: 11/02/18 21:55 Dose: 10 mg Lorazepam (Ativan Injection -) 1 mg IVPUSH Q6H PRN PRN Reason: WITHDRAWAL(CONT SUBST) Metoprolol Succinate (Toprol Xl -) 25 mg PO DAILY COUNT INCLUDES THE [facility] Last Admin: 11/02/18 10:57 Dose: 25 mg Pantoprazole Sodium (Protonix -) 40 mg PO DAILY COUNT INCLUDES THE [facility] Last Admin: 11/02/18 10:57 Dose: 40 mg CBC, BMP 11/02/18 06:13 11/02/18 06:13 cxr - reviewed
--- NOTE | 2018-11-03 10:36 | DS ---
Physical Examination Vital Signs: Vital Signs Temperature 97.9 F 11/03/18 06:00 Pulse Rate 54 L 11/03/18 06:00 Respiratory Rate 16 11/03/18 06:00 Blood Pressure 148/80 11/03/18 06:00 O2 Sat by Pulse Oximetry (%) 97 11/03/18 05:47 Findings/Remarks: comfortable chart reviewed Constitutional: Yes: No Distress Neck: Yes: Supple Cardiovascular: Yes: Regular Rate and Rhythm Respiratory: Yes: CTA Bilaterally Gastrointestinal: Yes: Soft Edema: No Neurological: Yes: Alert Labs: CBC, BMP 11/02/18 06:13 11/02/18 06:13 Discharge Summary Reason For Visit: CHEST DISCOMFORT Current Active Problems Chest pain (Acute) HLD (hyperlipidemia) (Acute) HTN (hypertension) (Acute) Hospital Course: mi ruled out stress test today if -ve d/c home cxr - noted pt follows pulmonary will consider ct chest as out pt d/w rn also Condition: Fair - Instructions Disposition: HOME - Home Medications Comprehensive Discharge Medication List: Ambulatory Orders Aspirin [ASA -] 81 mg PO DAILY #30 tab.chew 12/02/15 Atorvastatin Ca [Lipitor] 80 mg PO HS #30 tablet 12/02/15 Metoprolol Succinate [Toprol XL -] 25 mg PO DAILY 01/08/16 Lisinopril 10 mg PO BID 01/09/16 Albuterol Sulfate [Proair Respiclick] 90 mcg IH DAILY 09/23/16 Albuterol Sulfate Inhaler - [Ventolin HFA Inhaler -] 2 puff IH Q6H PRN inhaler 11/03/18 Pantoprazole Sodium [Protonix -] 40 mg PO DAILY tablet.ec 11/03/18
[2018-11-03 12:25] VITALS: BP 136/48; PULSE 59; TEMP 98.1
== END 2018-11-03 12:41 | disposition home or self-care (01) ==
LOC: JER 16:37 → JERBED 21:10 → J4S 11-02 14:40
PROVIDERS: ADMIT Internal Medicine; ATTEND Internal Medicine
PROC: 3E033GC Introduction of Other Therapeutic Substance into Peripheral Vein, Percutaneous Approach (ICD-10-PCS; principal; 2018-11-01)
PROC: 3E013GC Introduction of Other Therapeutic Substance into Subcutaneous Tissue, Percutaneous Approach (ICD-10-PCS; 2018-11-01)
DX: R07.89 Other chest pain (principal); I10 Essential (primary) hypertension; I25.2 Old myocardial infarction; I25.10 Atherosclerotic heart disease of native coronary artery without angina pectoris; I25.9 Chronic ischemic heart disease, unspecified; I27.29 Other secondary pulmonary hypertension; E78.5 Hyperlipidemia, unspecified; K21.9 Gastro-esophageal reflux disease without esophagitis; F10.11 Alcohol abuse, in remission; I34.0 Nonrheumatic mitral (valve) insufficiency; G47.33 Obstructive sleep apnea (adult) (pediatric); E78.00 Pure hypercholesterolemia, unspecified; Z95.5 Presence of coronary angioplasty implant and graft; Z79.82 Long term (current) use of aspirin
CPT/HCPCS: 36415; 71045-TC-FY; 78452-TC; 80048; 80053; 82550; 83735; 84484; 85025; 85027; 85610; 93005; 93010; 93017; 93306-TC; 96372; 96374; 99283-25; A9502; G0378; J1644; J2785

== ENCOUNTER 2020-02-15 12:41 | Inpatient (IN) | payer OTHER, BC ==
[2020-02-15 14:04] LABS: INR 0.98 (0.83-1.09); PROTHROMBIN TIME (PATIENT) 12.1 SEC (9.7-13.0)
[2020-02-15 14:13] LABS: HEMATOCRIT 35.5 % (35.4-49); HEMOGLOBIN 12.2 GM/dL (11.7-16.9); LYMPH % 13.8 % (8-40); MCH 35.9 pg (25.7-33.7); MCHC 34.5 g/dl (32.0-35.9); MEAN CELL VOLUME 103.9 fl (80-96); MEAN PLT VOLUME 9.1 fl (7.5-11.1); MONO % 21.5 % (3.8-10.2); NEUT % 58.7 % (42.8-82.8); PLATELET COUNT 221 K/MM3 (134-434); RBC 3.41 M/mm3 (4.00-5.60); RDW 13.4 % (11.9-15.9); WHITE BLOOD COUNT 4.4 K/mm3 (4.0-10.0)
[2020-02-15 14:14] LABS: CHLORIDE 92 mmol/L (98-107); POTASSIUM 4.2 mmol/L (3.5-5.1); SODIUM 124 mmol/L (136-145)
[2020-02-15 14:17] LABS: ALBUMIN 3.7 g/dl (3.4-5.0); ANION GAP 6 MMOL/L (8-16); BLOOD UREA NITROGEN 10.6 mg/dL (7-18); CALCIUM 8.6 mg/dL (8.5-10.1); CO2 27 mmol/L (21-32); GLUCOSE,RANDOM 103 mg/dL (74-106)
[2020-02-15 14:20] LABS: CREATININE 0.8 mg/dL (0.55-1.3); SGOT/AST 45 U/L (15-37); SGPT/ALT 45 U/L (13-61)
[2020-02-15 14:22] LABS: BILIRUBIN,TOTAL 0.8 mg/dL (0.2-1)
[2020-02-15 14:23] LABS: ALK PHOS 57 U/L (45-117)
[2020-02-15 14:24] LABS: LDH 171 U/L (87-246)
[2020-02-15] MEDS ORDERED: SODIUM CHLORIDE 0.9% 500 ML INFUS.BAG IV ONE (14:30)
[2020-02-15 15:15] LABS: MACROCYTOSIS 1+; PLATELET ESTIMATE ADEQUATE
[2020-02-15 15:36] LABS: BILIRUBIN,DIRECT 0.3 mg/dL (0.0-0.2)
[2020-02-15] MEDS ORDERED: CEFTRIAXONE 1 GM in DEXTROSE 5%-WATER - 50 ML IVPB ONE (17:38)
[2020-02-15] MEDS ORDERED: AZITHROMYCIN IVPB 500 MG in DEXTROSE 5%-WATER - 250 ML IVPB ONE (17:38)
[2020-02-15] MEDS ORDERED: CEFTRIAXONE 1 GM/50 ML BAG ONE (18:01)
[2020-02-15] MEDS ORDERED: AZITHROMYCIN IVPB 500 MG/250 ML BAG IVPB ONE (18:02)
[2020-02-15 19:40] LABS: PH,URINE 5.5 (5.0-8.0); URINE APPEARANCE CLOUDY; URINE BILIRUBIN 1+ (NEGATIVE); URINE COLOR DK YELLOW; URINE GLUCOSE (UA) NEGATIVE (NEGATIVE); URINE KETONE TRACE (NEGATIVE); URINE LEUK ESTERASE NEGATIVE (NEGATIVE); URINE NITRITE NEGATIVE (NEGATIVE); URINE PROTEIN TRACE (NEGATIVE)
[2020-02-15] MEDS ORDERED: ALBUTEROL SO4 HFA INHALER IH PRN (19:56)
[2020-02-15 21:23] LABS: POTASSIUM 4.1 mmol/L (3.5-5.1)
[2020-02-15 21:25] LABS: CALCIUM 7.6 mg/dL (8.5-10.1)
[2020-02-15 21:26] LABS: BLOOD UREA NITROGEN 9.3 mg/dL (7-18)
[2020-02-15 21:28] LABS: CREATININE 0.6 mg/dL (0.55-1.3)
[2020-02-15] MEDS: ATORVASTATIN CA 80 MG TABLET (FP) PO SCH (23:23)
[2020-02-15] MEDS: ASCORBIC ACID 500 MG TABLET (FP) PO SCH (23:23)
[2020-02-15] MEDS: LISINOPRIL 10 MG TABLET PO SCH (23:23)
[2020-02-16 01:00] VITALS: BMI 23.9
[2020-02-16 08:33] LABS: MAGNESIUM 1.5 mg/dL (1.8-2.4)
[2020-02-16 08:37] LABS: PHOSPHOROUS 2.5 mg/dL (2.5-4.9)
[2020-02-16] MEDS ORDERED: cefTRIAXone SODIUM 1 GM VIAL ONE (08:41)
[2020-02-16] MEDS ORDERED: DEXTROSE 5%-WATER - 50 ML IVPB ONE (08:42)
[2020-02-16] MEDS: ENOXAPARIN NA (PORCINE) 40 MG/0.4 ML DISP.SYRIN SQ SCH ×2 (08:53→09:15)
[2020-02-16] MEDS: LISINOPRIL 10 MG TABLET PO SCH ×3 (08:53→21:22)
[2020-02-16] MEDS: metoPROLOL SUCCINATE 25 MG TAB.SR.24H (FP) PO SCH ×2 (08:53→09:15)
[2020-02-16] MEDS: CHOLECALCIFEROL (VIT D3) 1,000 UNIT (25 MCG) TABLET PO SCH ×2 (08:53→09:15)
[2020-02-16] MEDS: PANTOPRAZOLE 40 MG TABLET PO SCH ×2 (08:54→09:15)
[2020-02-16] MEDS: ASCORBIC ACID 500 MG TABLET (FP) PO SCH ×3 (08:54→21:21)
[2020-02-16 08:55] LABS: HEMOGLOBIN 11.3 GM/dL (11.7-16.9); MCH 36.5 pg (25.7-33.7); MCHC 35.3 g/dl (32.0-35.9); MEAN CELL VOLUME 103.3 fl (80-96); PLATELET COUNT 167 K/MM3 (134-434); RDW 13.5 % (11.9-15.9); WHITE BLOOD COUNT 3.7 K/mm3 (4.0-10.0)
[2020-02-16] MEDS: AZITHROMYCIN IVPB 500 MG/250 ML BAG IVPB SCH (09:15)
[2020-02-16] MEDS: ZINC SULFATE 220 MG TABLET PO SCH (09:15)
[2020-02-16] MEDS: ASPIRIN 81 MG CHEWABLE TABLETS PO SCH (09:15)
[2020-02-16] MEDS: CEFTRIAXONE 1 GM in DEXTROSE 5%-WATER - 50 ML IVPB SCH (10:40)
[2020-02-16] MEDS ORDERED: SODIUM CHLORIDE 1,000 ML IV SCH (15:30)
[2020-02-16] MEDS ORDERED: PT OWN MED DRAWER 7, Y5N ONE (16:03)
[2020-02-16] MEDS ORDERED: ONDANSETRON 4 MG/2 ML VIAL IVPUSH PRN (16:15)
[2020-02-16] MEDS: ATORVASTATIN CA 80 MG TABLET (FP) PO SCH (21:22)
[2020-02-17 08:47] LABS: EOS % 2.8 % (0-4.5); HEMATOCRIT 34.2 % (35.4-49); HEMOGLOBIN 12.1 GM/dL (11.7-16.9); LYMPH % 23.6 % (8-40); MCH 36.8 pg (25.7-33.7); MCHC 35.5 g/dl (32.0-35.9); MEAN CELL VOLUME 103.8 fl (80-96); MEAN PLT VOLUME 8.5 fl (7.5-11.1); MONO % 22.2 % (3.8-10.2); NEUT % 50.4 % (42.8-82.8); PLATELET COUNT 201 K/MM3 (134-434); RBC 3.29 M/mm3 (4.00-5.60); RDW 13.7 % (11.9-15.9); WHITE BLOOD COUNT 4.1 K/mm3 (4.0-10.0)
[2020-02-17 09:04] LABS: ALBUMIN 3.5 g/dl (3.4-5.0); BLOOD UREA NITROGEN 5.6 mg/dL (7-18); CALCIUM 7.9 mg/dL (8.5-10.1)
[2020-02-17 09:08] LABS: BILIRUBIN,TOTAL 0.5 mg/dL (0.2-1); CREATININE 0.9 mg/dL (0.55-1.3); TOT PROT 6.7 g/dl (6.4-8.2)
[2020-02-17] MEDS ORDERED: DEXTROSE 5%-WATER - 50 ML IVPB ONE (10:18)
[2020-02-17] MEDS ORDERED: cefTRIAXone SODIUM 1 GM VIAL ONE (10:18)
[2020-02-17 10:20] LABS: ERYTHROCYTE SEDIMENTATION RATE 10 mm/hr (0-20)
[2020-02-17] MEDS: LISINOPRIL 10 MG TABLET PO SCH ×2 (10:24→22:18)
[2020-02-17] MEDS: ASPIRIN 81 MG CHEWABLE TABLETS PO SCH (10:24)
[2020-02-17 10:25] LABS: ANISOCYTOSIS 0; MACROCYTOSIS 1+; PLATELET ESTIMATE NORMAL
[2020-02-17] MEDS: CEFTRIAXONE 1 GM in DEXTROSE 5%-WATER - 50 ML IVPB SCH (10:25)
[2020-02-17] MEDS: ASCORBIC ACID 500 MG TABLET (FP) PO SCH ×2 (10:25→22:18)
[2020-02-17] MEDS: ENOXAPARIN NA (PORCINE) 40 MG/0.4 ML DISP.SYRIN SQ SCH (10:25)
[2020-02-17] MEDS: PANTOPRAZOLE 40 MG TABLET PO SCH (10:25)
[2020-02-17] MEDS: CHOLECALCIFEROL (VIT D3) 1,000 UNIT (25 MCG) TABLET PO SCH (10:25)
[2020-02-17] MEDS: AZITHROMYCIN IVPB 500 MG/250 ML BAG IVPB SCH (10:26)
[2020-02-17] MEDS: metoPROLOL SUCCINATE 25 MG TAB.SR.24H (FP) PO SCH (10:26)
[2020-02-17] MEDS ORDERED: PT OWN MED DRAWER 7, Y5N ONE (10:28)
[2020-02-17] MEDS: ZINC SULFATE 220 MG TABLET PO SCH (10:28)
[2020-02-17] MEDS ORDERED: SODIUM CHLORIDE 1,000 ML IV SCH (14:15)
[2020-02-17] MEDS: ATORVASTATIN CA 80 MG TABLET (FP) PO SCH (22:18)
[2020-02-18 09:21] LABS: POTASSIUM 4.4 mmol/L (3.5-5.1)
[2020-02-18 09:28] LABS: ALBUMIN 3.2 g/dl (3.4-5.0); BLOOD UREA NITROGEN 5.9 mg/dL (7-18); CALCIUM 7.8 mg/dL (8.5-10.1)
[2020-02-18 09:30] LABS: CREATININE 0.7 mg/dL (0.55-1.3)
[2020-02-18 09:32] LABS: BILIRUBIN,TOTAL 0.3 mg/dL (0.2-1); TOT PROT 6.4 g/dl (6.4-8.2)
[2020-02-18] MEDS ORDERED: PT OWN MED DRAWER 7, Y5N ONE (13:06)
[2020-02-18] MEDS: metoPROLOL SUCCINATE 25 MG TAB.SR.24H (FP) PO SCH (13:14)
[2020-02-18] MEDS: LISINOPRIL 10 MG TABLET PO SCH (13:14)
[2020-02-18] MEDS: PANTOPRAZOLE 40 MG TABLET PO SCH (13:14)
[2020-02-18] MEDS: ASCORBIC ACID 500 MG TABLET (FP) PO SCH (13:14)
[2020-02-18] MEDS: AZITHROMYCIN IVPB 500 MG/250 ML BAG IVPB SCH (13:14)
[2020-02-18] MEDS: ASPIRIN 81 MG CHEWABLE TABLETS PO SCH (13:15)
[2020-02-18] MEDS: CEFTRIAXONE 1 GM in DEXTROSE 5%-WATER - 50 ML IVPB SCH (13:15)
[2020-02-18] MEDS: ENOXAPARIN NA (PORCINE) 40 MG/0.4 ML DISP.SYRIN SQ SCH (13:15)
[2020-02-18] MEDS: CHOLECALCIFEROL (VIT D3) 1,000 UNIT (25 MCG) TABLET PO SCH (13:15)
[2020-02-18] MEDS: ZINC SULFATE 220 MG TABLET PO SCH (13:17)
[2020-02-18 14:37] VITALS: BP 137/72; PULSE 60; TEMP 98.3
== END 2020-02-18 15:23 | disposition home or self-care (01) | DRG 177 ==
LOC: JER 12:41 → JERBED 17:21 → J6S 22:02
PROVIDERS: ADMIT Internal Medicine; ATTEND Internal Medicine
DX: U07.1 COVID-19 (principal); J12.89 Other viral pneumonia; E87.1 Hypo-osmolality and hyponatremia; J44.1 Chronic obstructive pulmonary disease with (acute) exacerbation; I10 Essential (primary) hypertension; J45.909 Unspecified asthma, uncomplicated; I25.10 Atherosclerotic heart disease of native coronary artery without angina pectoris; K44.9 Diaphragmatic hernia without obstruction or gangrene; E78.5 Hyperlipidemia, unspecified; K21.9 Gastro-esophageal reflux disease without esophagitis; K70.10 Alcoholic hepatitis without ascites; Z95.5 Presence of coronary angioplasty implant and graft
CPT/HCPCS: 36415; 71045-TC-FY; 71250-TC; 80048; 80053; 81003; 82248; 82550; 82565; 82728; 83605; 83615; 83735; 83930; 83935; 84100; 84300; 84443; 84484; 85025; 85027; 85379; 85610; 85651; 86140; 87040; 87086; 87899; 93005; 93010; 97116-GP; 97161-GP; 99285-25; C9803; U0003

== ENCOUNTER 2020-02-20 16:56 | Emergency (ER) | payer OTHER, BC ==
[2020-02-20 17:17] VITALS: BP 147/80; PULSE 62; TEMP 97.7; BMI 24.0
--- OUTSIDE RECORDS SUMMARY | 2020-02-20 17:45 | XMS ---
:1940 Author Organization [facility] Care Team Providers Name Role Phone AALIYAHALMA Unavailable Unavailable GLORIA ADAMS MD Unavailable Unavailable NURSE Unavailable Unavailable BEENA MORAN Unavailable Unavailable Nava Arreola MD Unavailable Unavailable Nava Arreola MD Unavailable Unavailable Nava Arreola MD Unavailable Unavailable Nava Arreola MD Unavailable Unavailable Nava Arreola MD Unavailable Unavailable Nava Arreola MD Unavailable Unavailable Nava Arreoal MD Unavailable Unavailable Re-disclosure Warning The records that you are about to access may contain information from federally- assisted alcohol or drug abuse programs. If such information is present, then the following federally mandated warning applies: This information has been disclosed to you from records protected by federal confidentiality rules (42 CFR part 2). The federal rules prohibit you from making any further disclosure of this information unless further disclosure is expressly permitted by the written consent of the person to whom it pertains or as otherwise permitted by 42 CFR part 2. A general authorization for the release of medical or other information is NOT sufficient for this purpose. The Federal rules restrict any use of the information to criminally investigate or prosecute any alcohol or drug abuse patient.The records that you are about to access may contain highly sensitive health information, the redisclosure of which is protected by Article 27-F of the [facility] Public Health law. If you continue you may haveaccess to information: Regarding HIV / AIDS; Provided by facilities licensed or operated by the [facility] Office of Mental Health; or Provided by the [facility] Office for People With Developmental Disabilities. If such information is present, then the following [facility] mandated warning applies: This information has been disclosed to you from confidential records which are protected by state law. State law prohibits you from making any further disclosure of this information without the specific written consent of the person to whom it pertains, or as otherwise permitted by law. Any unauthorized further disclosure in violation of state law may result in a fine or snf sentence or both. A general authorization for the release of medical or other information is NOT sufficient authorization for further disclosure. 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 Aminah dan term (CURRENT) s 11:32:00 [facility] [place] (current USE OF AM EST ) use of INHALED inhaled STEROIDS steroids Z79.899 Other OTHER LONG Diagnosi 01/03/2019 Pat feng log hooker s 11:32:00 Hospita l term (CURRENT) AM EST (current DRUG THERAPY ) drug therapy Z95.5 Presence PRESENCE OF Diagnosi 01/03/2019 Des of CORONARY s 11:32:00 Hospit al coronary ANGIOPLASTY AM EST angiopla IMPLANT AND sty GRAFT implant and graft 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/03/2019 Aminah alejandrak term (CURRENT) s 11:32:00 [facility] [place] (current USE OF AM EST ) use of ASPIRIN aspirin R00.1 Bradycar BRADYCARDIA, Diagnosi 01/03/2019 Des nikole, UNSPECIFIED s 11:32:00 Hos pital unspecif AM EST ied J45.909 Unspecif UNSPECIFIED Diagnosi 01/03/2019 Des ied ASTHMA, s 11:32:00 Hospita l asthma, UNCOMPLICATE AM EST uncompli D cated E78.00 Pure PURE Diagnosi 01/03/2019 Aminahac k hypercho HYPERCHOLEST s 11:32:00 H ospital lesterol EROLEMIA, AM EST emia, UNSPECIFIED unspecif ied I10 [facility] ESSENTIAL Diagnosi 01/03/2019 Pat feng l (PRIMARY) s 11:32:00 [facility] [place] (primary HYPERTENSION AM EST ) hyperten lauren I25.10 Atherosc ATHEROSCLERO Diagnosi 01/03/2019 Des lerotic TIC HEART s 11:32:00 [facility] [place] heart DISEASE OF AM EST disease [place] of CORONARY ute ARTERY coronary WITHOUT artery ANGINA without PECTORIS angina pectoris F10.239 Alcohol ALCOHOL Diagnosi 01/03/2019 [place] dependen DEPENDENCE s 11:32:00 Hos pital ce with WITH AM EST withdraw WITHDRAWAL, al, UNSPECIFIED unspecif ied R11.2 Nausea NAUSEA WITH Diagnosi 01/03/2019 [place] with VOMITING, s 11:32:00 [facility] [place] vomiting UNSPECIFIED AM EST , unspecif ied J40 Bronchit BRONCHITIS, Diagnosi 01/03/2019 Des is, not NOT s 11:05:00 Hospita l specifie SPECIFIED AM EST d as ACUTE OR acute or CHRONIC chronic Results ID Date Data Source [id number] 02/15/2020 01:36:00 PM EST [facility] Name Value Range Interpretation Code Description Data Jyoti rce(s) Supporting Document(s ) SARS COV-2 [facility] RT-PCR This lab was ordered by [facility]. and reported by [facility]. ID Date Data Source [id number] 12/24/2018 11:29:20 AM EST [place] [facility] Exam: Upright PA and lateral radiographs of the chest.Clinical History: CHEST-Coughcough with malaiseComparison: None.Findings: There are bilateral calcified pleural plaques. The lungs are hyperinfl ated suggestive of emphysematous changes. The lungs are otherwise clear. No pleural ef fusion. Pulmonary vascularity is normal. The heart is normal in size. A hiatal hernia is large. There is mild kyphosis of the thoracic spine. Osteopenia is diffuse. N o evidence of fracture.Impression: 1. Bilateral calcified pleural plaques.2. E mphysematous changes. Lungs otherwise clear.3. Large hiatal hernia. 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 01/03/2019 [place] term (CURRENT) 11:32:00 Hospit al VITTORIOAd 12:59 (current USE OF AM EST mitter: :26 ) use of INHALED MARJAN PM inhaled STEROIDS VITTORIOCo EST steroids nsultant: GLORIA ABDULLAHIonsulta nt: Matty Aliceaulttricia nt: ALMA NASTASECon sultant: CONSULT NURSEConsu ltant: MARJAN MORAN Inpatient Attender: ELIZABETHJunior 03/19 Z79.899 Other OTHER LONG 01/03/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 11:32:00 Hospital VITTORIOAd 12:59 term (CURRENT) AM EST mitter: :26 (current DRUG THERAPY MARJAN PM ) drug VITTORIOCo EST therapy nsultant: GLORIA ABDULLAHIonsulta nt: Matty Aliceaulttricia nt: ALMA NASTASECon sultant: CONSULT NURSEConsu ltant: MARJAN MORAN Inpatient Attender: RAMAN 03/19 Z95.5 Presence PRESENCE OF 01/03/2019 [facility] of CORONARY 11:32:00 Hospita l VITTORIOAd 12:59 coronary ANGIOPLASTY AM EST mitter: :26 angiopla IMPLANT AND MARJAN PM sty GRAFT VITTORIOCo EST implant nsultant: and GLORIA graft ANGIE Aliceaulta nt: Matty Aliceaulttricia nt: ALMA NASTASECon sultant: CONSULT NURSEConsu ltant: MARJAN MORAN Inpatient Attender: RAMAN 03/19 Z79.82 Long 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 01/03/2019 [facility] term (CURRENT) 11:32:00 Hospit al VITTORIOAd 12:59 (current USE OF AM EST mitter: :26 ) use of ASPIRIN MARJAN PM aspirin VITTORIOCo EST nsultant: GLORIA Aliceaulttricia nt: Matty Fracno nt: ALMA NASTASECon sultant: CONSULT NURSEConsu ltant: MARJAN MORAN Inpatient Attender: RAMAN 03/19 R00.1 Bradycar BRADYCARDIA, 01/03/2019 [facility] nikole, UNSPECIFIED 11:32:00 Hosp ital VITTORIOAd 12:59 unspecif AM EST mitter: :26 ied MARJAN PM VITTORIOCo EST nsultant: GLORIA [place] MDConsulta nt: Matty Arreola MDConsulta nt: ALMA NASTASECon sultant: CONSULT NURSEConsu ltant: MARJAN MORAN Inpatient Attender: RAMAN 03/19 J45.909 Unspecif UNSPECIFIED 01/03/2019 [facility] ied ASTHMA, 11:32:00 Hospital VITTORIOAd 12:59 asthma, UNCOMPLICATE AM EST mitter: :26 uncompli D MARJAN PM cated VITTORIOCo EST nsultant: GLORIA [place] MDConsulta nt: Matty Arreola MDConsulta nt: ALMA NASTASECon sultant: CONSULT NURSEConsu ltant: MARJAN MORAN Inpatient Attender: RAMAN 03/19 E78.00 Pure PURE 01/03/2019 [facility] hypercho HYPERCHOLEST 11:32:00 Hospital VITTORIOAd 12:59 lesterol EROLEMIA, AM EST mitter: :26 emia, UNSPECIFIED MARJAN PM unspecif VITTORIOCo EST ied nsultant: GLORIA [place] MDConsulta nt: Matty Arreola MDConsulta nt: ALMA NASTASECon sultant: CONSULT NURSEConsu ltant: MARJAN MORAN Inpatient Attender: RAMAN 03/19 I10 [facility] ESSENTIAL 01/03/2019 [facility] l (PRIMARY) 11:32:00 Hospit al VITTORIOAd 12:59 (primary HYPERTENSION AM EST mitter: :26 ) MARJAN PM hyperten VITTORIOCo EST lauren nsultant: GLORIA [place] MDConsulta nt: Matty Arreola MDConsulta nt: ALMA NASTASECon sultant: CONSULT NURSEConsu ltant: MARJAN MORAN Inpatient Attender: RAMAN 03/19 I25.10 Atherosc ATHEROSCLERO 01/03/2019 [facility] [place] lerotic TIC HEART 11:32:00 Hosp ital VITTORIOAd 12:59 heart DISEASE OF AM EST mitter: :26 disease [place] MARJAN PM of CORONARY VITTORIOCo EST ute ARTERY nsultant: coronary WITHOUT GLORIA artery ANGINA SET[place] without PECTORIS MDConsulta angina nt: Matty pectoris Arreola MDConsulta nt: ALMA NASTASECon sultant: CONSULT NURSEConsu ltant: MARJAN MORAN Inpatient Attender: RAMAN 03/19 F10.239 Alcohol ALCOHOL 01/03/2019 [facility] [place] dependen DEPENDENCE 11:32:00 Ho spital VITTORIOAd 12:59 ce with WITH AM EST mitter: :26 withdraw WITHDRAWAL, MARJAN PM al, UNSPECIFIED VITTORIOCo EST unspecif nsultant: ied GLORIA ADAMS MDConsulta nt: Matty Arreola MDConsulta nt: ALMA NASTASECon sultant: CONSULT NURSEConsu ltant: MARJAN MORAN Inpatient Attender: RAMAN 03/19 R11.2 Nausea NAUSEA WITH 01/03/2019 [facility] [place] with VOMITING, 11:32:00 Hospit al VITTORIOAd 12:59 vomiting UNSPECIFIED AM EST mitter: :26 , MARJAN PM unspecif VITTORIOCo EST ied nsultant: GLORIA ABDULLAHIonsulta nt: Matty Arreola MDConsulta nt: ALMA NASTASECon sultant: CONSULT NURSEConsu ltant: MARJAN MORAN Inpatient Attender: RAMAN 03/19 J40 Bronchit BRONCHITIS, 01/03/2019 Des [facility] is, not NOT 11:05:00 Hospital VITTORIOAd 12:59 specifie SPECIFIED AM EST mitter: :26 d as ACUTE OR MARJAN PM acute or CHRONIC VITTORIOCo EST chronic nsultant: GLORIA Aliceaulta nt: Matty Arreola MDConsulta nt: ALMA NASTASECon sultant: CONSULT NURSEConsu ltant: MARJAN MORAN Patient discharged. Insurance Providers Payer name Policy type Policy ID Covered Covered democrat's Policy P olamide / Coverage democrat ID relationship to [employer] Inf ormation type coleman EMPIRE BLUE Patient is [id number] CROSS - PPO Insured MEDICARE Patient is [id number] A Insured Emblem Patient is [id number] Insured EMPIRE BLUE Patient is [id number] CROSS - PPO Insured Vital Signs ID Date Data Source [id number] 03/19/2019 12:59:26 PM EST [facility], [facility], [facility], [facility], [facility], [facility], [facility], [facility] Name Value Range Interpretation Code Description Data Source(s) Weight 62.16 KG [facility] Weight 63.97 KG [facility] Weight 62.61 KG [facility] Weight 62.61 KG [facility] Weight 59.89 KG [facility] Height 162.56 CM [facility] status N Des par[place] [Interpretation] - Reported status N [place] [Interpretation] - Reported
[2020-02-20] MEDS ORDERED: ASPIRIN 81 MG CHEWABLE TABLETS PO ONE (17:47)
[2020-02-20 18:57] LABS: BASO % 1.3 % (0-2.0); EOS % 7.1 % (0-4.5); HEMATOCRIT 36.1 % (35.4-49); HEMOGLOBIN 12.4 GM/dL (11.7-16.9); LYMPH % 29.5 % (8-40); MCH 35.8 pg (25.7-33.7); MCHC 34.5 g/dl (32.0-35.9); MEAN CELL VOLUME 103.7 fl (80-96); MEAN PLT VOLUME 8.6 fl (7.5-11.1); MONO % 15.5 % (3.8-10.2); NEUT % 46.6 % (42.8-82.8); PLATELET COUNT 193 K/MM3 (134-434); RBC 3.48 M/mm3 (4.00-5.60); RDW 13.5 % (11.9-15.9); WHITE BLOOD COUNT 3.1 K/mm3 (4.0-10.0)
[2020-02-20 19:05] LABS: INR 1.03 (0.83-1.09); PROTHROMBIN TIME (PATIENT) 12.4 SEC (9.7-13.0)
[2020-02-20 19:07] LABS: ACTIVATED PTT 35.6 SECONDS (25.2-36.5)
[2020-02-20 19:13] LABS: CHLORIDE 96 mmol/L (98-107); POTASSIUM 4.8 mmol/L (3.5-5.1); SODIUM 130 mmol/L (136-145)
[2020-02-20 19:15] LABS: CALCIUM 8.7 mg/dL (8.5-10.1)
[2020-02-20 19:16] LABS: ALBUMIN 3.8 g/dl (3.4-5.0); ANION GAP 6 MMOL/L (8-16); BLOOD UREA NITROGEN 11.7 mg/dL (7-18); CO2 28 mmol/L (21-32); GLUCOSE,RANDOM 94 mg/dL (74-106); MAGNESIUM 1.5 mg/dL (1.8-2.4)
[2020-02-20 19:19] LABS: SGOT/AST 44 U/L (15-37); SGPT/ALT 46 U/L (13-61)
[2020-02-20 19:21] LABS: BILIRUBIN,TOTAL 0.3 mg/dL (0.2-1); TOT PROT 7.1 g/dl (6.4-8.2)
[2020-02-20 19:22] LABS: ALK PHOS 70 U/L (45-117)
[2020-02-20 19:25] LABS: CREATININE 0.9 mg/dL (0.55-1.3)
--- NOTE | 2020-02-20 20:09 | PDOC ---
History of Present Illness - General Chief Complaint: Shortness of Breath Stated Complaint: SOB/COVID POSITIVE Time Seen by Provider: 02/20/20 17:47 - History of Present Illness Initial Comments: 02/20/20 20:04 79 y/o M recently discharged from hospital for +COVID and Hyponatremia presents for evaluation of ongoing shortness of breath due to COVID Past History - Medical History Allergies/Adverse Reactions: Allergies Allergy/AdvReac Type Severity Reaction Status Date / Time No Known Allergies Allergy Verified 02/20/20 17:17 Home Medications: Ambulatory Orders Aspirin [ASA -] 81 mg PO DAILY #30 tab.chew 12/02/15 Atorvastatin Ca [Lipitor] 80 mg PO HS #30 tablet 12/02/15 Metoprolol Succinate [Toprol XL -] 25 mg PO DAILY 01/08/16 Lisinopril 10 mg PO BID 01/09/16 Albuterol Sulfate [Proair Respiclick] 90 mcg IH DAILY 09/23/16 Albuterol Sulfate Inhaler - [Ventolin HFA Inhaler -] 2 puff IH Q6H PRN inhaler 11/03/18 Pantoprazole Sodium [Protonix -] 40 mg PO DAILY tablet.ec 11/03/18 Ascorbic Acid [Vitamin C -] 500 mg PO DAILY tablet 02/18/20 Cholecalciferol (Vitamin D3) [Vitamin D3 -] 1,000 unit PO DAILY tab 02/18/20 Zinc Sulfate 220 mg PO DAILY #30 tablet 02/18/20 Anemia: Yes (IRON DEFICIENCY ANEMIA) Asthma: Yes Cancer: Yes (RECTAL CANCER, FACIAL CA) Cardiac Disorders: Yes (RI 12/03 09/04) CVA: No COPD: 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) CHF: No Dementia: No Diabetes: No GI Disorders: Yes (GERD,GASTRODUODENITIS,GASTRITIS) Disorders: No HTN: Yes Hypercholesterolemia: Yes Kidney Stones: No Liver Disease: No Seizures: No Thyroid Disease: No Lung CA: No - Surgical History Abdominal Surgery: Yes (BILATERAL INGUINAL HERNIA REPAIR) Appendectomy: Yes Cardiac Surgery: Yes (STENT RIGHT/BALLOON LEFT SIDE) Cholecystectomy: No Lung Surgery: No Neurologic Surgery: No Orthopedic Surgery: No - Reproductive History Testicular Surgery: No - Immunization History Immunization Up to Date: Yes - Psycho-Social/Smoking History Smoking Status: No Smoking History: Never smoked Have you smoked in the past 12 months: No Number of Cigarettes Smoked Daily: 2 Information on smoking cessation initiated: No 'Breaking Loose' booklet given: 10/11/14 - Substance Abuse Hx (Audit-C & DAST Scrn) How often the patient has a drink containing alcohol: Never Score: In Men: 4 or > Positive; In Women: 3 or > Positive: 0 Screen Result (Pos requires Nsg. Audit-10AR): Negative In the last yr the pt used illegal drug/Rx for NonMed reason: No Score: Yes response is considered Positive: 0 Screen Result (Positive result requires Nsg. DAST-10): Negative Review of Systems - Review of Systems Constitutional: Yes: Malaise Respiratory: Yes: Cough, Shortness of Breath Cardiac (ROS): No: Chest Pain *Physical Exam - Vital Signs Last Vital Signs Temp Pulse Resp BP Pulse Ox 97.7 F 62 17 147/80 98 02/20/20 17:15 02/20/20 17:15 02/20/20 17:15 02/20/20 17:15 02/20/20 17:15 - Physical Exam General Appearance: Yes: Nourished, Appropriately Dressed. 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 NML intact, Fully Oriented, Alert, Normal Mood/Affect ED Treatment Course - LABORATORY CBC & Chemistry Diagram: 02/20/20 18:45 02/20/20 18:45 - ADDITIONAL ORDERS Additional order review: Laboratory Results 02/20/20 02/20/20 18:45 18:45 PT with INR 12.40 INR 1.03 PTT (Actin FS) 35.6 Sodium 130 L Potassium 4.8 Chloride 96 L Carbon Dioxide 28 Anion Gap 6 L BUN 11.7 Creatinine 0.9 Est GFR (CKD-EPI)AfAm 93.16 Est GFR (CKD-EPI)NonAf 80.38 Random Glucose 94 Calcium 8.7 Magnesium 1.5 L Total Bilirubin 0.3 AST 44 H ALT 46 Alkaline Phosphatase 70 Creatine Kinase 61 Troponin I < 0.02 Total Protein 7.1 Albumin 3.8 02/20/20 18:45 RBC 3.48 L MCV 103.7 H MCHC 34.5 RDW 13.5 MPV 8.6 Neutrophils % 46.6 Lymphocytes % 29.5 D Monocytes % 15.5 H Eosinophils % 7.1 H D Basophils % 1.3 - RADIOLOGY Radiology Studies Ordered: Category Date Time Status CHEST PA & LAT [RAD] Stat Radiology 02/20/20 17:48 Completed Medical Decision Making - Medical Decision Making 02/20/20 20:07 Er work up and CXR negative Na 130 and noted. Reviewed case with ER attending pt OK to be d/c with clsoe f/u I have reviewed the pathophysiology with the patient. They are in agreement with the treatment plan and all questions were answered to their satisfaction. Understanding for follow-up without fail was also conveyed to the patient. Discharge - Discharge Information Problems reviewed: Yes Clinical Impression/Diagnosis: Hyponatremia, COVID-19 - Admission No - Follow up/Referral Referrals: Bakari Ellsworth MD [Primary Care Provider] - - Patient Discharge Instructions Patient Printed Discharge Instructions: [facility] - Coronavirus Instructions Additional Instructions: Continue your prescribed medication as directed Your sodium level is 130 today and still low. Return to the emergency room tomorrow for a recheck if you are unable to get in with your primary care physician. Your emergency room evaluation is not complete until a re check on your sodium is done. You must also, without fail, follow up with your primary care physiian in 1-2 days for further evaluation and treatment options. Return to the Emergency Room sooner if you have problems. - Post Discharge Activity
--- NOTE | 2020-02-21 15:03 | EKG ---
Test Reason : Blood Pressure : / mmHG Vent. Rate : 056 BPM Atrial Rate : 056 BPM P-R Int : 138 ms QRS Dur : 088 ms QT Int : 466 ms P-R-T Axes : 031 029 056 degrees QTc Int : 449 ms SINUS BRADYCARDIA WITH PREMATURE ATRIAL COMPLEXES OTHERWISE NORMAL ECG WHEN COMPARED WITH ECG OF 15-FEB-2020 13:26, PREMATURE ATRIAL COMPLEXES ARE NOW PRESENT Confirmed by DONA SORTO MD ([id number]) on 02/21/2020 3:02:53 PM Referred By: Confirmed By:DONA SORTO MD
== END 2020-02-20 21:33 | disposition home or self-care (01) ==
LOC: JER 16:56
DX: E87.1 Hypo-osmolality and hyponatremia (principal); Z11.59 Encounter for screening for other viral diseases
CPT/HCPCS: 36415; 71046-TC-FY; 80053; 82550; 83735; 84484; 85025; 85610; 85730; 93005; 93010; 99284-25

== ENCOUNTER 2020-03-08 09:27 | Emergency (ER) | payer OTHER, BC ==
[2020-03-08 09:49] VITALS: BMI 24.0
[2020-03-08] MEDS ORDERED: ACETAMINOPHEN 325 MG TABLET (FP) PO ONE (10:32)
[2020-03-08] MEDS ORDERED: ACETAMINOPHEN 325 MG TABLET (FP) ONE (10:40)
[2020-03-08] MEDS ORDERED: chlordiazePOXIDE HCL 25 MG CAPSULE PO ONE ×2 (10:45→12:58)
[2020-03-08] MEDS ORDERED: chlordiazePOXIDE HCL 25 MG CAPSULE ONE ×2 (11:17→13:36)
[2020-03-08 14:01] VITALS: BP 148/88; PULSE 98; TEMP 97.8
== END 2020-03-08 14:01 | disposition home or self-care (01) ==
LOC: JER 09:27
DX: W19.XXXA Unspecified fall, initial encounter (principal)
CPT/HCPCS: 70450-TC; 70486-TC; 72125-TC; 99285-25